=== PATIENT | female | born 1995 | race African-American/Black ===

== ENCOUNTER 2016-10-15 19:46 | Emergency (ER) | payer SELFPAY ==
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
[2016-10-15] MEDS ORDERED: KETOROLAC TROMETHAMINE 60 MG/2 ML SDV IM ONE (20:58)
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
[2016-10-15 21:07] LABS: ABSOLUTE EOSINOPHILS # (AUTO) 0.1 10^3/uL (0.0-0.6); ABSOLUTE LYMPHOCYTES (AUTO) 2.4 10^3/uL (0.5-4.7); ABSOLUTE MONOCYTES (AUTO) 0.6 10^3/uL (0.1-1.4); BASOPHILS % (AUTO) 0.5 % (0-2); EOSINOPHILS % (AUTO) 1.2 % (0-6); HEMATOCRIT 41.5 % (36.0-47.0); HEMOGLOBIN 14.1 g/dL (12.0-15.5); HGB HCT DIFFERENCE 0.8; LYMPHOCYTES % (AUTO) 29.5 % (13-45); MEAN CORPUSCULAR HEMOGLOBIN 29.6 pg (27.0-33.4); MEAN CORPUSCULAR HGB CONC 34.1 g/dL (32.0-36.0); MEAN CORPUSCULAR VOLUME 87 fl (80-97); MONOCYTES % (AUTO) 6.8 % (3-13); RED BLOOD COUNT 4.78 10^6/uL (3.72-5.28); RED CELL DISTRIBUTION WIDTH 13.6 % (11.5-14.0); WHITE BLOOD COUNT 8.1 10^3/uL (4.0-10.5)
[2016-10-15 21:17] LABS: ALANINE AMINOTRANSFERASE 23 U/L (9-52); ALBUMIN 4.8 g/dL (3.5-5.0); ALKALINE PHOSPHATASE 88 U/L (38-126); ANION GAP 11 (5-19); ASPARTATE AMINO TRANSFERASE 21 U/L (14-36); BILIRUBIN,DIRECT 0.4 mg/dL (0.0-0.4); BILIRUBIN,TOTAL 0.5 mg/dL (0.2-1.3); BLOOD UREA NITROGEN 12 mg/dL (7-20); CALCIUM 10.3 mg/dL (8.4-10.2); CARBON DIOXIDE 28 mmol/L (22-30); CHLORIDE 104 mmol/L (98-107); CREATININE RESULT 0.91 mg/dL (0.52-1.25); GLUCOSE 114 mg/dL (75-110); LIPASE 49.2 U/L (23-300); POTASSIUM 4.5 mmol/L (3.6-5.0); SODIUM 142.9 mmol/L (137-145); TOTAL PROTEIN 8.4 g/dL (6.3-8.2)
[2016-10-15 21:24] LABS: APPEARANCE,URINE TURBID; BILIRUBIN,URINE NEGATIVE (NEGATIVE); CALCIUM OXALATE CRYSTALS,URINE FEW /HPF; GLUCOSE, URINE NEGATIVE (NEGATIVE); KETONES,URINE 20 mg/dL (NEGATIVE); LEUKOCYTE ESTERASE,URINE LARGE (NEGATIVE); NITRITE,URINE NEGATIVE (NEGATIVE); PROTEIN,URINE 100 mg/dL (NEGATIVE); URINE SPECIFIC GRAVITY 1.025
[2016-10-15 22:31] VITALS: BP 110/78
== END 2016-10-15 22:30 | disposition home or self-care (01) ==
LOC: ER 19:46
DX: N93.9 Abnormal uterine and vaginal bleeding, unspecified (principal); R10.31 Right lower quadrant pain; R10.32 Left lower quadrant pain; Y04.2XXA Assault by strike against or bumped into by another person, initial encounter; R42 Dizziness and giddiness; R00.0 Tachycardia, unspecified; F17.200 Nicotine dependence, unspecified, uncomplicated; Z97.5 Presence of (intrauterine) contraceptive device; Z88.0 Allergy status to penicillin; Z88.5 Allergy status to narcotic agent; Z91.018 Allergy to other foods; Z87.442 Personal history of urinary calculi
CPT/HCPCS: 99284; 96372; 36415; 83690; 84703; 85025; 80053; 81001; J1885

== ENCOUNTER 2016-10-27 16:06 | Emergency (ER) | payer SELFPAY ==
[2016-10-27] MEDS ORDERED: NORMAL SALINE 1000 ML 1,000 ML IV ONE ×2 (16:26→18:20)
[2016-10-27] MEDS ORDERED: ACETAMINOPHEN 325 MG TABLET PO ONE (16:26)
[2016-10-27] MEDS ORDERED: CEFTRIAXONE 1 GM/D5W RTU 1 GM/50 ML RTUPB IV ONE (16:26)
[2016-10-27] MEDS ORDERED: LIDOCAINE 2% VISCOUS SOLN 20 ML UDCUP PO ONE (16:26)
[2016-10-27] MEDS ORDERED: METOCLOPRAMIDE HCL ORAL SOLN 10 MG/10 ML UDCUP PO ONE (16:26)
[2016-10-27] MEDS ORDERED: MAG HYDROX/AL HYDROX/SIMETH SUSP 30 ML UDCUP PO ONE (16:26)
--- NOTE | 2016-10-27 16:38 | ER Document Report ---
ED Medical Screen (RME) - General Chief Complaint: Flank Pain Stated Complaint: KIDNEY PAIN,CHEST PAIN,HEADACHE Time Seen by Provider: 10/27/16 16:18 Notes: The patient is a 21-year-old female, past medical history infected kidney stones , presents with worsening right flank pain over the past 2 days with fevers. She is also having epigastric pain and nausea. Patient states her right flank pain is constant and does not appear to be colicky in nature. PE: Uncomfortable. Tachycardia. Febrile. Right CVA tenderness. Epigastric tenderness. I have greeted and performed a rapid initial assessment of this patient. A comprehensive ED assessment and evaluation of the patient, analysis of test results and completion of the medical decision making process will be conducted by additional ED providers. TRAVEL OUTSIDE OF THE [place] IN LAST 30 DAYS: No - Related Data Allergies/Adverse Reactions: Penicillins Allergy (Severe, Verified 10/15/16 19:54) hydrocodone Allergy (Verified 10/15/16 19:54) grape juice Allergy (Mild, Uncoded 07/24/15 13:46) Hives mustard Allergy (Mild, Uncoded 07/24/15 13:46) Hives pickles Allergy (Mild, Uncoded 07/24/15 13:46) Hives Past Medical History - Social History Chew tobacco use (# tins/day): No Frequency of alcohol use: None Drug Abuse: None Neurological Medical History: Reports: Hx Migraine, Hx Seizures Renal/ Medical History: Reports: Hx Kidney Stones. Denies: Hx Peritoneal Dialysis Psychiatric Medical History: Reports: Hx Attention Deficit Hyperactivity Disorder, Hx Bipolar Disorder, Hx Depression Past Surgical History: Reports: Hx Gynecologic Surgery - D&C - Immunizations Immunizations up to date: Yes Hx Diphtheria, Pertussis, Tetanus Vaccination: - 2008 Physical Exam - Vital signs Vitals: Temp Pulse Resp BP Pulse Ox 102.8 F H 112 H 20 117/74 97 10/27/16 16:19 10/27/16 16:19 10/27/16 16:19 10/27/16 16:19 10/27/16 16:19 Course - Vital Signs Vital signs: Temp Pulse Resp BP Pulse Ox 102.8 F H 112 H 20 117/74 97 10/27/16 16:19 10/27/16 16:19 10/27/16 16:19 10/27/16 16:19 10/27/16 16:19
[2016-10-27 16:53] LABS: HEMATOCRIT 41.2 % (36.0-47.0); HEMOGLOBIN 13.9 g/dL (12.0-15.5); HGB HCT DIFFERENCE 0.5; MEAN CORPUSCULAR HEMOGLOBIN 29.3 pg (27.0-33.4); MEAN CORPUSCULAR HGB CONC 33.7 g/dL (32.0-36.0); MEAN CORPUSCULAR VOLUME 87 fl (80-97); RED BLOOD COUNT 4.75 10^6/uL (3.72-5.28); RED CELL DISTRIBUTION WIDTH 13.4 % (11.5-14.0); WHITE BLOOD COUNT 20.2 10^3/uL (4.0-10.5)
--- NOTE | 2016-10-27 16:56 | ER Document Report ---
ED General - General Chief Complaint: Flank Pain Stated Complaint: KIDNEY PAIN,CHEST PAIN,HEADACHE Time Seen by Provider: 10/27/16 16:18 Mode of Arrival: Ambulatory Information source: Patient Notes: 21-year-old female presents with complaints of flank pain. Patient admits to fevers and chills notes initially symptoms started with difficulty with urination. Now admits to left flank pain TRAVEL OUTSIDE OF THE [place] IN LAST 30 DAYS: No - HPI Onset: Other - 3 days Onset/Duration: Persistent, Worse Quality of pain: Achy Severity: Mild Pain Level: 3 Associated symptoms: Body/muscle aches, Chills, Fever Exacerbated by: Denies Relieved by: Denies Similar symptoms previously: Yes Recently seen / treated by doctor: No - Related Data Allergies/Adverse Reactions: Penicillins Allergy (Severe, Verified 10/27/16 18:12) hydrocodone Allergy (Verified 10/27/16 18:12) grape juice Allergy (Mild, Uncoded 10/27/16 18:12) Hives mustard Allergy (Mild, Uncoded 10/27/16 18:12) Hives pickles Allergy (Mild, Uncoded 10/27/16 18:12) Hives Past Medical History - Social History Smoking Status: Never Smoker Cigarette use (# per day): No Chew tobacco use (# tins/day): No Smoking Education Provided: No Frequency of alcohol use: None Drug Abuse: None Family History: DM, Hypertension Patient has suicidal ideation: No Patient has homicidal ideation: No Neurological Medical History: Reports: Hx Migraine, Hx Seizures Renal/ Medical History: Reports: Hx Kidney Stones. Denies: Hx Peritoneal Dialysis Psychiatric Medical History: Reports: Hx Attention Deficit Hyperactivity Disorder, Hx Bipolar Disorder, Hx Depression Past Surgical History: Reports: Hx Gynecologic Surgery - D&C - Immunizations Immunizations up to date: Yes Hx Diphtheria, Pertussis, Tetanus Vaccination: - 2008 Review of Systems - Review of Systems Notes: REVIEW OF SYSTEMS: CONSTITUTIONAL : Admits fevers chills EENT: Denies eye, ear, throat, or mouth pain or symptoms. Denies nasal or sinus congestion or discharge. Denies throat, tongue, or mouth swelling or difficulty swallowing. CARDIOVASCULAR: Denies chest pain. Denies palpitations or racing or irregular heart beat. Denies ankle edema. RESPIRATORY: Denies cough, cold, or chest congestion. Denies shortness of breath, difficulty breathing, or wheezing. GASTROINTESTINAL: Denies abdominal pain or distention. Denies nausea, vomiting , or diarrhea. Denies blood in vomitus, stools, or per rectum. Denies black, tarry stools. Denies constipation. GENITOURINARY: Denies difficulty urinating, painful urination, burning, frequency, blood in urine, or discharge. FEMALE GENITOURINARY: Denies vaginal bleeding, heavy or abnormal periods, irregular periods. Denies vaginal discharge or odor. MUSCULOSKELETAL: Admits body aches SKIN: Denies rash, lesions or sores. HEMATOLOGIC : Denies easy bruising or bleeding. LYMPHATIC: Denies swollen, enlarged glands. NEUROLOGICAL: Denies confusion or altered mental status. Denies passing out or loss of consciousness. Denies dizziness or lightheadedness. Denies headache. Denies weakness or paralysis or loss of use of either side. Denies problems with gait or speech. Denies sensory loss, numbness, or tingling. Denies seizures. PSYCHIATRIC: Denies anxiety or stress. Denies depression, suicidal ideation, or homicidal ideation. ALL OTHER SYSTEMS REVIEWED AND NEGATIVE. PHYSICAL EXAMINATION: GENERAL: Well-appearing, well-nourished and in no acute distress. febrile HEAD: Atraumatic, normocephalic. EYES: Pupils equal round and reactive to light, extraocular movements intact, conjunctiva are normal. ENT: Nares patent, oropharynx clear without exudates. Moist mucous membranes. NECK: Normal range of motion, supple without lymphadenopathy LUNGS: Breath sounds clear to auscultation bilaterally and equal. No wheezes rales or rhonchi. HEART: Regular rate and rhythm without murmurs ABDOMEN: Soft, nontender, nondistended abdomen. No guarding, no rebound. No masses appreciated. left cva tenderness Female : deferred Musculoskeletal: Normal range of motion, no pitting or edema. No cyanosis. NEUROLOGICAL: Cranial nerves grossly intact. Normal speech, normal gait. Normal sensory, motor exams PSYCH: Normal mood, normal affect. SKIN: Warm, Dry, normal turgor, no rashes or lesions noted. Dictation was performed using [employer] voice recognition software Physical Exam - Vital signs Vitals: Temp Pulse Resp BP Pulse Ox 102.8 F H 112 H 20 117/74 97 10/27/16 16:19 10/27/16 16:19 10/27/16 16:19 10/27/16 16:19 10/27/16 16:19 Course - Re-evaluation Re-evalutation: 10/27/16 17:14 Patient has probable pylo, labs pending 10/27/16 18:45 Patient is sleeping comfortably, no longer tachycardic 10/27/16 19:43 Patient reevaluated still stable will discharge home with antibiotics After performing a Medical Screening Examination, I estimate there is LOW risk for ACUTE APPENDICITIS, BOWEL OBSTRUCTION, ACUTE CHOLECYSTITIS, PERFORATED DIVERTICULITIS, INCARCERATED HERNIA, PANCREATITIS, PELVIC INFLAMMATORY DISEASE, PERFORATED ULCER, ECTOPIC , or TUBO-OVARIAN ABSCESS, thus I consider the discharge disposition reasonable. Also, there is no evidence or peritonitis , sepsis, or toxicity. I have reevaluated this patient multiple times and no significant life threatening changes are noted. The patient and I have discussed the diagnosis and risks, and we agree with discharging home with close follow-up with the understanding that symptoms and presentations can change. We also discussed returning to the Emergency Department immediately if new or worsening symptoms occur. We have discussed the symptoms which are most concerning (e.g., bloody stool, fever, changing or worsening pain, vomiting) that necessitate immediate return. - Vital Signs Vital signs: Temp Pulse Resp BP Pulse Ox 98.5 F 106 H 17 101/69 99 10/27/16 19:33 10/27/16 18:29 10/27/16 19:30 10/27/16 19:30 10/27/16 19:30 - Laboratory Result Diagrams: 10/27/16 16:30 10/27/16 16:30 Laboratory results interpreted by me: 10/27/16 10/27/16 10/27/16 16:30 16:30 16:30 WBC 20.2 H Seg Neuts % (Manual) 81 H Lymphocytes % (Manual) 9 L Abs Neuts (Manual) 16.4 H Abs Monocytes (Manual) 1.8 H Calcium 10.3 H Urine Protein 100 H Urine Ketones TRACE H Urine Blood MODERATE H Urine Nitrite POSITIVE H Ur Leukocyte Esterase LARGE H Discharge - Discharge Clinical Impression: Pyelonephritis UTI (urinary tract infection) Qualifiers: Urinary tract infection type: acute cystitis Hematuria presence: with hematuria Qualified Code(s): N30.01 - Acute cystitis with hematuria Sepsis Qualifiers: Sepsis type: sepsis due to unspecified organism Qualified Code(s): A41.9 - Sepsis, unspecified organism Condition: Stable Disposition: HOME, SELF-CARE Instructions: Pyelonephritis ([facility]) Additional Instructions: Follow up with your physician tomorrow for further care or return to the ED IMMEDIATELY if symptoms worsen or new concerns occur. If you cannot afford to follow up with your primary care physician a list of low cost clinics have been provided at the end of your discharge papers as well. Prescriptions: Ciprofloxacin HCl [Cipro 500 mg Tablet] 500 mg PO BID #20 tablet Oxycodone HCl/Acetaminophen [Percocet 5-325 mg Tablet] 1 - 2 tab PO Q4H PRN #15 tablet PRN Reason: Promethazine HCl [Phenergan 25 mg Tablet] 1 - 2 tab PO Q6H PRN #15 tablet PRN Reason:
[2016-10-27 17:09] LABS: APPEARANCE,URINE TURBID; BILIRUBIN,URINE NEGATIVE (NEGATIVE); GLUCOSE, URINE NEGATIVE (NEGATIVE); KETONES,URINE TRACE mg/dL (NEGATIVE); LEUKOCYTE ESTERASE,URINE LARGE (NEGATIVE); NITRITE,URINE POSITIVE (NEGATIVE); PROTEIN,URINE 100 mg/dL (NEGATIVE); UROBILINOGEN,URINE NEGATIVE mg/dL (<2.0)
[2016-10-27 17:10] LABS: ALANINE AMINOTRANSFERASE 22 U/L (9-52); ALBUMIN 4.8 g/dL (3.5-5.0); ALKALINE PHOSPHATASE 94 U/L (38-126); ANION GAP 10 (5-19); ASPARTATE AMINO TRANSFERASE 15 U/L (14-36); BILIRUBIN,DIRECT 0.3 mg/dL (0.0-0.4); BILIRUBIN,TOTAL 0.8 mg/dL (0.2-1.3); BLOOD UREA NITROGEN 8 mg/dL (7-20); CALCIUM 10.3 mg/dL (8.4-10.2); CARBON DIOXIDE 27 mmol/L (22-30); CHLORIDE 100 mmol/L (98-107); CREATININE RESULT 1.01 mg/dL (0.52-1.25); GLUCOSE 106 mg/dL (75-110); LIPASE 33.2 U/L (23-300); POTASSIUM 4.2 mmol/L (3.6-5.0); SODIUM 137.2 mmol/L (137-145); TOTAL PROTEIN 8.2 g/dL (6.3-8.2)
[2016-10-27] MEDS ORDERED: KETOROLAC TROMETHAMINE INJ/PF 30 MG/1 ML SDV IV ONE (17:10)
[2016-10-27 17:16] LABS: BASOPHILS % (MANUAL) 0 % (0-2); EOSINOPHILS % (MANUAL) 0 % (0-6); LYMPHOCYTES % (MANUAL) 9 % (13-45); TOTAL CELLS COUNTED 100
[2016-10-27 17:18] LABS: RBC MORPHOLOGY COMMENT NORMO-CYTIC/CHROMIC
[2016-10-27 19:34] VITALS: BP 101/69
== END 2016-10-27 19:50 | disposition home or self-care (01) ==
LOC: ER 16:06
DX: N12 Tubulo-interstitial nephritis, not specified as acute or chronic (principal); N30.01 Acute cystitis with hematuria; A41.9 Sepsis, unspecified organism; R07.9 Chest pain, unspecified; R10.9 Unspecified abdominal pain; R51 Headache; M79.1 Myalgia; Z88.0 Allergy status to penicillin; Z88.6 Allergy status to analgesic agent; Z87.442 Personal history of urinary calculi
CPT/HCPCS: 99284; 96361; 96375; 96365; 36415; 87040; 87086; 83690; 85025; 87088; 80053; 81001; 87186; 83605; J3490; J1885; J7030; J0696

== ENCOUNTER 2018-10-06 15:53 | Emergency (ER) | payer SELFPAY ==
[2018-10-06 15:58] VITALS: BP 113/61
[2018-10-06] MEDS ORDERED: ONDANSETRON 4 MG TAB.RAPDIS PO ONE (16:58)
[2018-10-06] MEDS ORDERED: KETOROLAC TROMETHAMINE 60 MG/2 ML SDV IM ONE (16:59)
--- NOTE | 2018-10-06 17:03 | ER Document Report ---
ED Medical Screen (RME) - General Chief Complaint: Flank Pain Stated Complaint: HEADACHE/FLANK PAIN Time Seen by Provider: 10/06/18 16:45 Mode of Arrival: Ambulatory Information source: Patient TRAVEL OUTSIDE OF THE [place] IN LAST 30 DAYS: No - HPI Notes: 10/06/18 16:59 23-year-old female presents to ED for complaints of headache, right flank pain for the last couple of days, has a history of nephrolithiasis with renal stent placement. Patient states she is been increasing oral hydration, has not followed up with the windows laptop technician due to recent incarceration. Patient is eating and drinking without issues. Does not have a primary care provider that she follows with your windows laptop technician. Worse with time, nothing makes better. Denies fevers, chills, chest pain,palpitations, shortness of breath, dyspnea, nausea, vomiting, diarrhea, abdominal pain, hematuria,blurred vision, double vision, loss of vision, speech changes, LH, dizziness, syncope, wheezing, ST, URI, neck pain, weakness, bowel or bladder dysfunction, saddle anesthesia, numbness or tingling in bilateral upper or lower extremities equally, muscle paralysis, weakness in bilateral upper or lower extremities equally or rash. P ROS: Other than noted above, the 12 point review of systems was reviewed with the patient and were negative, all pertinent findings are included in the HPI. PHYSICAL EXAMINATION: Vital signs reviewed. GENERAL: Well-appearing, well-nourished and in no mild distress. HEAD: Atraumatic, normocephalic. NECK: Normal range of motion CV: Heart regular rate and rhythm LUNGS: No respiratory distress ABD: right cva tenderness on palpation Musculoskeletal: Normal range of motion NEUROLOGICAL: Normal speech PSYCH: Normal mood, normal affect. MDM: Patient seen and examined for rapid initial assessment. Vital signs reviewed. A comprehensive ED assessment and evaluation of the patient, analysis of test results and completion of the medical decision making process will be conducted by additional ED providers. *Note is created using voice recognition software and may contain spelling, syntax or grammatical errors. - Related Data Allergies/Adverse Reactions: Penicillins Allergy (Severe, Verified 10/06/18 15:54) hydrocodone Allergy (Verified 10/06/18 15:54) grape juice Allergy (Mild, Uncoded 10/06/18 15:54) Hives mustard Allergy (Mild, Uncoded 10/06/18 15:54) Hives pickles Allergy (Mild, Uncoded 10/06/18 15:54) Hives Past Medical History Neurological Medical History: Reports: Hx Migraine, Hx Seizures Renal/ Medical History: Reports: Hx Kidney Stones. Denies: Hx Peritoneal Dialysis Psychiatric Medical History: Reports: Hx Attention Deficit Hyperactivity Disorder, Hx Bipolar Disorder, Hx Depression Past Surgical History: Reports: Hx Gynecologic Surgery - D&C - Immunizations Immunizations up to date: Yes Hx Diphtheria, Pertussis, Tetanus Vaccination: - 2008 Physical Exam - Vital signs Vitals: Temp Pulse Resp BP Pulse Ox 97.6 F 71 20 113/61 99 10/06/18 15:57 10/06/18 15:57 10/06/18 15:57 10/06/18 15:57 10/06/18 15:57 Course - Vital Signs Vital signs: Temp Pulse Resp BP Pulse Ox 97.6 F 71 20 113/61 99 10/06/18 15:57 10/06/18 15:57 10/06/18 15:57 10/06/18 15:57 10/06/18 15:57
[2018-10-06 18:27] LABS: ABSOLUTE EOSINOPHILS # (AUTO) 0.1 10^3/uL (0.0-0.6); ABSOLUTE LYMPHOCYTES (AUTO) 2.2 10^3/uL (0.5-4.7); ABSOLUTE MONOCYTES (AUTO) 0.5 10^3/uL (0.1-1.4); ABSOLUTE NEUT (AUTO) 4.8 10^3/uL (1.7-8.2); BASOPHILS % (AUTO) 0.5 % (0-2); EOSINOPHILS % (AUTO) 1.1 % (0-6); HEMATOCRIT 40.1 % (36.0-47.0); HEMOGLOBIN 13.3 g/dL (12.0-15.5); MEAN CORPUSCULAR HEMOGLOBIN 28.2 pg (27.0-33.4); MEAN CORPUSCULAR HGB CONC 33.2 g/dL (32.0-36.0); MEAN CORPUSCULAR VOLUME 85 fl (80-97); MONOCYTES % (AUTO) 6.6 % (3-13); PLATELET COUNT 318 10^3/uL (150-450); RED BLOOD COUNT 4.71 10^6/uL (3.72-5.28); RED CELL DISTRIBUTION WIDTH 14.5 % (11.5-14.0); SEGMENTED NEUTROPHILS % (AUTO) 62.8 % (42-78); TOTAL CELLS COUNTED % (AUTO) 100 %; WHITE BLOOD COUNT 7.6 10^3/uL (4.0-10.5)
[2018-10-06 18:42] LABS: ALANINE AMINOTRANSFERASE 24 U/L (9-52); ALBUMIN 4.6 g/dL (3.5-5.0); ALKALINE PHOSPHATASE 81 U/L (38-126); ANION GAP 5 (5-19); ASPARTATE AMINO TRANSFERASE 22 U/L (14-36); BILIRUBIN,DIRECT 0.1 mg/dL (0.0-0.4); BILIRUBIN,TOTAL 0.2 mg/dL (0.2-1.3); BLOOD UREA NITROGEN 11 mg/dL (7-20); CALCIUM 10.3 mg/dL (8.4-10.2); CARBON DIOXIDE 28 mmol/L (22-30); CHLORIDE 107 mmol/L (98-107); POTASSIUM 4.4 mmol/L (3.6-5.0); TOTAL PROTEIN 7.6 g/dL (6.3-8.2)
--- NOTE | 2018-10-06 18:44 | RADIOLOGY REPORT (SQ) ---
EXAM DESCRIPTION: [employer] COMPLETED DATE/TIME: 10/06/2018 6:16 pm REASON FOR STUDY: R flank pain COMPARISON: None. TECHNIQUE: Dynamic and static grayscale images acquired of the kidneys and bladder and recorded on P ACS. Additional selected color Doppler and spectral images recorded. LIMITATIONS: None. FINDINGS: RIGHT KIDNEY: Normal size. Normal echogenicity. No solid or suspicious masses. No hydronep hrosis. No calcifications. LEFT KIDNEY: Normal size. Normal echogenicity. No solid or suspicious masses. No hydronephrosis. No calcifications. BLADDER: No masses. OTHER FINDINGS: No other significant finding. IMPRESSION: NORMAL RENAL AND BLADDER ULTRASOUND. TECHNICAL DOCUMENTATION: JOB ID: [id number] [id number] 2010 [employer]- All Rights Reserved Reading location - IP/workstation name: [email or web address]
[2018-10-06 18:49] LABS: GLUCOSE 64 mg/dL (75-110)
[2018-10-06] MEDS ORDERED: KETOROLAC TROMETHAMINE 60 MG/2 ML SDV ONE (19:15)
[2018-10-06] MEDS ORDERED: ONDANSETRON 4 MG TAB.RAPDIS ONE (19:16)
[2018-10-06 19:33] LABS: AMORPHOUS SEDIMENT,URINE 1+ /HPF; APPEARANCE,URINE TURBID; BILIRUBIN,URINE NEGATIVE (NEGATIVE); COLOR,URINE YELLOW; GLUCOSE, URINE NEGATIVE (NEGATIVE); KETONES,URINE NEGATIVE (NEGATIVE); LEUKOCYTE ESTERASE,URINE MODERATE (NEGATIVE); NITRITE,URINE POSITIVE (NEGATIVE); PROTEIN,URINE NEGATIVE (NEGATIVE); URINE SPECIFIC GRAVITY 1.017; UROBILINOGEN,URINE NEGATIVE mg/dL (<2.0)
[2018-10-06] MEDS ORDERED: CIPROFLOXACIN 400 MG/D5W RTU 400 MG/200 ML RTUPB IV ONE (19:51)
[2018-10-06] MEDS ORDERED: NORMAL SALINE 1000 ML 1,000 ML IV ONE (19:52)
[2018-10-06 20:32] LABS: URINE AMPHETAMINES SCREEN NEGATIVE; URINE BARBITURATES SCREEN NEGATIVE; URINE BENZODIAZEPINES SCREEN NEGATIVE; URINE COCAINE SCREEN NEGATIVE; URINE METHADONE SCREEN NEGATIVE; URINE PHENCYCLIDINE SCREEN NEGATIVE
[2018-10-06 20:34] LABS: URINE MARIJUANA (THC) SCREEN UNCONFIRMED POSITIVE
[2018-10-06] MEDS ORDERED: PHENAZOPYRIDINE HCL 100 MG TABLET PO ONE (21:19)
--- NOTE | 2018-10-06 21:19 | ER Document Report ---
ED GI/ - General Chief Complaint: Flank Pain Stated Complaint: HEADACHE/FLANK PAIN Time Seen by Provider: 10/06/18 16:45 Primary Care Provider: [facility] [Provider Group] - Follow up in 3-5 days Mode of Arrival: Ambulatory Notes: 23-year-old female patient emerged department chief complaint right flank pain and dysuria. Patient is concerned because she has had multiple kidney infections. Also had a history of stones. Wanted to get this "taken care of soon". No fever. Generally does not feel well. Having some body aches and some right flank pain. TRAVEL OUTSIDE OF THE [place] IN LAST 30 DAYS: No - HPI Patient complains to provider of: Dysuria, Flank pain Onset: Yesterday Timing/Duration: Gradual, Constant Quality of pain: Achy Severity at maximum: Moderate Severity in ED: Moderate Pain Level: 3 Location: Right flank Vaginal bleeding (Compared to normal period): None - Related Data Allergies/Adverse Reactions: Penicillins Allergy (Severe, Verified 10/06/18 15:54) hydrocodone Allergy (Verified 10/06/18 15:54) grape juice Allergy (Mild, Uncoded 10/06/18 15:54) Hives mustard Allergy (Mild, Uncoded 10/06/18 15:54) Hives pickles Allergy (Mild, Uncoded 10/06/18 15:54) Hives Past Medical History - General Information source: Patient - Social History Smoking Status: Smoker,Current Status Unk Frequency of alcohol use: None Drug Abuse: None Lives with: Family Family History: DM, Hypertension Patient has suicidal ideation: No Patient has homicidal ideation: No Neurological Medical History: Reports: Hx Migraine, Hx Seizures Renal/ Medical History: Reports: Hx Kidney Stones. Denies: Hx Peritoneal Dialysis Psychiatric Medical History: Reports: Hx Attention Deficit Hyperactivity Disorder, Hx Bipolar Disorder, Hx Depression Past Surgical History: Reports: Hx Gynecologic Surgery - D&C - Immunizations Immunizations up to date: Yes Hx Diphtheria, Pertussis, Tetanus Vaccination: - 2008 Review of Systems - Review of Systems Notes: Constitutional: denies: Chills, Diaphoresis, Fever, Malaise, Weakness EENT: denies: Eye discharge, Blurred vision, Tearing, Double vision, Nose congestion, Nose discharge, Throat swelling, Mouth pain Cardiovascular: denies: Palpitations, Heart racing, Orthopnea, Dyspnea, Chest pain Respiratory: denies: Cough, Hurts to breathe, Wheezing, Shortness of breath Gastrointestinal: denies: Abdominal pain, Diarrhea, Nausea, Vomiting, Black stools, bright red blood in stool Genitourinary: denies: Burning, +Dysuria, -Discharge, +Frequency, +Flank pain, +Hematuria Musculoskeletal: denies: Joint pain, Joint swelling, Muscle pain, Muscle stiffness, back pain Hematologic/Lymphatic: denies: Anemia, Easy bleeding, Easy bruising, Blood clots Neurological/Psychological: denies: Confusion, Dementia, Depression, Loss of co nsciousness Skin: No lesions, no masses, no skin breakdown, no abscesses Physical Exam - Vital signs Vitals: Temp Pulse Resp BP Pulse Ox 97.6 F 71 20 113/61 99 10/06/18 15:57 10/06/18 15:57 10/06/18 15:57 10/06/18 15:57 10/06/18 15:57 Interpretation: Normal - General General appearance: Appears well, Alert - HEENT Head: Normocephalic, Atraumatic Eyes: Normal Pupils: PERRL - Respiratory Respiratory status: No respiratory distress Chest status: Nontender Breath sounds: Normal Chest palpation: Normal - Cardiovascular Rhythm: Regular Heart sounds: Normal auscultation Murmur: No - Abdominal Inspection: Normal Distension: No distension Bowel sounds: Normal Tenderness: Nontender Organomegaly: No organomegaly - Back Back: Normal, Nontender - Extremities General upper extremity: Normal inspection, Nontender, Normal color, Normal ROM, Normal temperature General lower extremity: Normal inspection, Nontender, Normal color, Normal ROM, Normal temperature, Normal weight bearing. No: [place]'s sign - Neurological Neuro grossly intact: Yes Cognition: Normal Orientation: AAOx4 Chris Coma Scale Eye Opening: Spontaneous Eugene Coma Scale Verbal: Oriented Eugene Coma Scale Motor: Obeys Commands Eugene Coma Scale Total: 15 Speech: Normal Motor strength normal: LUE, RUE, LLE, RLE Sensory: Normal - Psychological Associated symptoms: Normal affect, Normal mood - Skin Skin Temperature: Warm Skin Moisture: Dry Skin Color: Normal Course - Re-evaluation Re-evalutation: 10/06/18 21:16 Laboratory 10/06/18 10/06/18 10/06/18 18:12 18:12 19:20 WBC 7.6 RBC 4.71 Hgb 13.3 Hct 40.1 MCV 85 MCH 28.2 MCHC 33.2 RDW 14.5 H Plt Count 318 Seg Neutrophils % 62.8 Lymphocytes % 29.0 Monocytes % 6.6 Eosinophils % 1.1 Basophils % 0.5 Absolute Neutrophils 4.8 Absolute Lymphocytes 2.2 Absolute Monocytes 0.5 Absolute Eosinophils 0.1 Absolute Basophils 0.0 Sodium 140.2 Potassium 4.4 Chloride 107 Carbon Dioxide 28 Anion Gap 5 BUN 11 Creatinine 0.68 Est GFR ( Amer) > 60 Est GFR (Non-Af Amer) > 60 Glucose 64 L Calcium 10.3 H Total Bilirubin 0.2 Direct Bilirubin 0.1 Neonat Total Bilirubin Not Reportable Neonat Direct Bilirubin Not Reportable Neonat Indirect Bili Not Reportable AST 22 ALT 24 Alkaline Phosphatase 81 Total Protein 7.6 Albumin 4.6 Lipase 90.2 Urine Color YELLOW Urine Appearance TURBID Urine pH 7.0 Ur Specific Daphne 1.017 Urine Protein NEGATIVE Urine Glucose (UA) NEGATIVE Urine Ketones NEGATIVE Urine Blood NEGATIVE Urine Nitrite POSITIVE H Urine Bilirubin NEGATIVE Urine Urobilinogen NEGATIVE Ur Leukocyte Esterase MODERATE H Urine WBC (Auto) 11 Urine RBC (Auto) 4 Urine Bacteria (Auto) TRACE Squamous Epi Cells Auto 28 Amorphous Sediment Auto 1+ Urine Mucus (Auto) RARE Urine Ascorbic Acid NEGATIVE Urine HCG, Qual NEGATIVE Urine Opiates Screen Urine Methadone Screen Ur Barbiturates Screen Ur Phencyclidine Scrn Ur Amphetamines Screen U Benzodiazepines Scrn Urine Cocaine Screen U Marijuana (THC) Screen 10/06/18 19:20 WBC RBC Hgb Hct MCV MCH MCHC RDW Plt Count Seg Neutrophils % Lymphocytes % Monocytes % Eosinophils % Basophils % Absolute Neutrophils Absolute Lymphocytes Absolute Monocytes Absolute Eosinophils Absolute Basophils Sodium Potassium Chloride Carbon Dioxide Anion Gap BUN Creatinine Est GFR ( Amer) Est GFR (Non-Af Amer) Glucose Calcium Total Bilirubin Direct Bilirubin Neonat Total Bilirubin Neonat Direct Bilirubin Neonat Indirect Bili AST ALT Alkaline Phosphatase Total Protein Albumin Lipase Urine Color Urine Appearance Urine pH Ur Specific Daphne Urine Protein Urine Glucose (UA) Urine Ketones Urine Blood Urine Nitrite Urine Bilirubin Urine Urobilinogen Ur Leukocyte Esterase Urine WBC (Auto) Urine RBC (Auto) Urine Bacteria (Auto) Squamous Epi Cells Auto Amorphous Sediment Auto Urine Mucus (Auto) Urine Ascorbic Acid Urine HCG, Qual Urine Opiates Screen NEGATIVE Urine Methadone Screen NEGATIVE Ur Barbiturates Screen NEGATIVE Ur Phencyclidine Scrn NEGATIVE Ur Amphetamines Screen NEGATIVE U Benzodiazepines Scrn NEGATIVE Urine Cocaine Screen NEGATIVE U Marijuana (THC) Screen UNCONFIRMED POSITIVE Renal Ultrasound 10/06/18 16:54 IMPRESSION: NORMAL RENAL AND BLADDER ULTRASOUND. Patient has UTI with nitrite positive. Review of cultures performed and shows that she is sensitive to fluoroquinolones and tolerated it well in the past. Given her history I have going to give her some IV antibiotics. Patient is comfortable with this plan. Toradol was given as well. Comfortable discharging after antibiotics are complete. Has urology follow-up. - Vital Signs Vital signs: Temp Pulse Resp BP Pulse Ox 97.6 F 71 20 113/61 99 10/06/18 15:57 10/06/18 15:57 10/06/18 15:57 10/06/18 15:57 10/06/18 15:57 - Laboratory Result Diagrams: 10/06/18 18:12 10/06/18 18:12 Laboratory results interpreted by me: 10/06/18 10/06/18 10/06/18 18:12 18:12 19:20 RDW 14.5 H Glucose 64 L Calcium 10.3 H Urine Nitrite POSITIVE H Ur Leukocyte Esterase MODERATE H Discharge - Discharge Clinical Impression: Urinary tract infection Qualifiers: Urinary tract infection type: site unspecified Hematuria presence: without hematuria Qualified Code(s): N39.0 - Urinary tract infection, site not specified Condition: Good Disposition: HOME, SELF-CARE Instructions: Ciprofloxacin ([facility]), Urinary Anesthetic Agent ([facility]), Urinary Tract Infection ([facility]) Additional Instructions: If you develop worsening pain, fever, unable to tolerate your medications or for any other concerns please return immediately for repeat evaluation. Please make an appointment to follow-up with a urologist. Follow-up information for the urology group that sees patients here in [place] and who we are affiliated with the hospital in [place] has been provided. Prescriptions: Ciprofloxacin HCl [Cipro 500 mg Tablet] 500 mg PO BID 7 Days #14 tablet Phenazopyridine HCl [Pyridium 100 Mg Tablet] 100 mg PO TID 3 Days #9 tablet Referrals: [facility] [Provider Group] - Follow up in 3-5 days
== END 2018-10-06 21:36 | disposition home or self-care (01) ==
LOC: ER 15:53
DX: N39.0 Urinary tract infection, site not specified (principal); R30.0 Dysuria; R10.9 Unspecified abdominal pain; Z87.442 Personal history of urinary calculi; Z88.0 Allergy status to penicillin; Z88.5 Allergy status to narcotic agent; Z91.018 Allergy to other foods
CPT/HCPCS: 99284; 96361; 96374; 96375; 36415; 87086; 83690; 85025; 81025; 80053; 81001; 80307; 76775; J1885; S0119; J3490; J7030; J0744

== ENCOUNTER 2019-01-21 09:26 | Inpatient (IN) | payer SELFPAY ==
[2019-01-21] MEDS ORDERED: METOCLOPRAMIDE HCL INJ/PF 10 MG/2 ML SDV IV ONE ×2 (11:38→16:01)
[2019-01-21] MEDS ORDERED: NORMAL SALINE 1000 ML 1,000 ML IV ONE ×3 (11:38→18:54)
[2019-01-21] MEDS ORDERED: MORPHINE SULFATE 10 MG/ML INJ IV ONE ×2 (11:39→16:58)
--- NOTE | 2019-01-21 11:40 | ER Document Report ---
ED Medical Screen (RME) - General Chief Complaint: Flank Pain Stated Complaint: FLANK PAIN Time Seen by Provider: 01/21/19 11:32 Notes: Patient is a 23-year-old female who presents to emergency department with a chief complaint of right flank pain. Patient reports over the past 4 days she has had lower abdominal pain and right flank pain. Patient reports she does have a history of kidney stones. Patient denies urinary symptoms. Patient reports significant nausea and vomiting and inability to keep anything down by mouth over the past 4 days. Patient reports her last menstrual cycle was December 19 but that she could be . Patient denies vaginal bleeding or discharge. Patient reports subjective fevers. EMS reported a lactate of 2.8. TRAVEL OUTSIDE OF THE U[place] IN LAST 30 DAYS: No - Related Data Allergies/Adverse Reactions: Penicillins Allergy (Severe, Verified 10/06/18 15:54) hydrocodone Allergy (Verified 10/06/18 15:54) grape juice Allergy (Mild, Uncoded 10/06/18 15:54) Hives mustard Allergy (Mild, Uncoded 10/06/18 15:54) Hives pickles Allergy (Mild, Uncoded 10/06/18 15:54) Hives Past Medical History - Social History Frequency of alcohol use: None Drug Abuse: Marijuana Neurological Medical History: Reports: Hx Migraine, Hx Seizures Renal/ Medical History: Reports: Hx Kidney Stones. Denies: Hx Peritoneal Dialysis Psychiatric Medical History: Reports: Hx Attention Deficit Hyperactivity Disorder, Hx Bipolar Disorder, Hx Depression Past Surgical History: Reports: Hx Gynecologic Surgery - D&C - Immunizations Immunizations up to date: Yes Hx Diphtheria, Pertussis, Tetanus Vaccination: - 2008 Physical Exam - Vital signs Vitals: Temp Pulse Resp BP Pulse Ox 97.8 F 82 18 125/64 99 01/21/19 10:28 01/21/19 10:28 01/21/19 10:28 01/21/19 10:28 01/21/19 10:28 Course - Re-evaluation Re-evalutation: 01/21/19 11:39 I have greeted and performed a rapid initial assessment of this patient. A comprehensive ED assessment and evaluation of the patient, analysis of test results and completion of the medical decision making process will be conducted by additional ED providers. - Vital Signs Vital signs: Temp Pulse Resp BP Pulse Ox 97.8 F 82 18 125/64 99 01/21/19 10:28 01/21/19 10:28 01/21/19 10:28 01/21/19 10:28 01/21/19 10:28
[2019-01-21 12:21] LABS: HEMATOCRIT 40.8 % (36.0-47.0); HEMOGLOBIN 13.7 g/dL (12.0-15.5); MEAN CORPUSCULAR HEMOGLOBIN 28.4 pg (27.0-33.4); MEAN CORPUSCULAR HGB CONC 33.6 g/dL (32.0-36.0); MEAN CORPUSCULAR VOLUME 85 fl (80-97); PLATELET COUNT 314 10^3/uL (150-450); RED BLOOD COUNT 4.82 10^6/uL (3.72-5.28); RED CELL DISTRIBUTION WIDTH 13.9 % (11.5-14.0); WHITE BLOOD COUNT 24.6 10^3/uL (4.0-10.5)
[2019-01-21] MEDS ORDERED: KETOROLAC TROMETHAMINE INJ/PF 30 MG/1 ML SDV IV ONE (12:31)
--- NOTE | 2019-01-21 12:38 | ER Document Report ---
ED General - General Chief Complaint: Flank Pain Stated Complaint: FLANK PAIN Time Seen by Provider: 01/21/19 11:32 TRAVEL OUTSIDE OF THE U.[place]. IN LAST 30 DAYS: No - HPI Notes: 23-year-old female with prior history of renal stones requiring stent placement and lithotripsy several years ago now presents today with recurrent right flank pain of 3 days duration which is described as intermittent and sharp about 8/10 intensity. She has had associated nausea multiple episodes of vomiting today. Feels her pain is getting worse. She denies fever, chills, or dysuria. Patient reports normal menses 2 weeks ago. She states that she is otherwise healthy. - Related Data Allergies/Adverse Reactions: Penicillins Allergy (Severe, Verified 10/06/18 15:54) hydrocodone Allergy (Verified 10/06/18 15:54) grape juice Allergy (Mild, Uncoded 10/06/18 15:54) Hives mustard Allergy (Mild, Uncoded 10/06/18 15:54) Hives pickles Allergy (Mild, Uncoded 10/06/18 15:54) Hives Past Medical History - Social History Smoking Status: Current Every Day Smoker Frequency of alcohol use: None Drug Abuse: Marijuana Family History: DM, Hypertension Patient has suicidal ideation: No Patient has homicidal ideation: No Neurological Medical History: Reports: Hx Migraine, Hx Seizures Renal/ Medical History: Reports: Hx Kidney Stones. Denies: Hx Peritoneal Dialysis Psychiatric Medical History: Reports: Hx Attention Deficit Hyperactivity Disorder, Hx Bipolar Disorder, Hx Depression Past Surgical History: Reports: Hx Gynecologic Surgery - D&C - Immunizations Immunizations up to date: Yes Hx Diphtheria, Pertussis, Tetanus Vaccination: - 2008 Review of Systems - Review of Systems Notes: Constitutional: Negative for fever. HENT: Negative for sore throat. Eyes: Negative for visual changes. Cardiovascular: Negative for chest pain. Respiratory: Negative for shortness of breath. Gastrointestinal: As per HPI Musculoskeletal: Negative for back pain. Skin: Negative for rash. Neurological: Negative for headaches, weakness or numbness. 10 point ROS negative except as marked above and in HPI. Physical Exam - Vital signs Vitals: Temp Pulse Resp BP Pulse Ox 97.8 F 82 18 125/64 99 01/21/19 10:28 01/21/19 10:28 01/21/19 10:28 01/21/19 10:28 01/21/19 10:28 Notes: GENERAL: Slender female appearing approximately her stated age who appears mildly uncomfortable. She is somewhat sedated from morphine which was already administered by mid-level provider. SKIN: Good turgor with grade 2 acneform rash noted over the facial area. HEAD: Normocephalic atraumatic. EYES: PERRLA. Conjunctivae and sclerae clear. EARS: CANALS AND TMS CLEAR. NOSE: CLEAR. MOUTH: Moist mucosa. Good dentition. No stridor or edema. No drooling. NECK: Supple. No masses or thyromegaly. No adenopathy. Carotids 2+ without bruits. No JVD. BACK: Symmetrical with right CVA tenderness. CHEST: Respirations unlabored. Breath sounds clear and symmetrical. HEART: Regular rhythm. No murmur gallop or rub. ABDOMEN: Soft with mild tenderness right upper quadrant with deep palpation. No masses, organomegaly or rebound. Bowel sounds normally active. No bruits. GENITALIA: Deferred. EXTREMITIES: No edema. No calf tenderness. Cap refill less than 1.5 seconds. Dorsalis pedis and posterior tibial pulses 3+ and symmetrical. NEUROLOGICAL: GCS 15. Alert and oriented x3. Normal gait. Fluent speech. Cranial nerves II through XII intact. Sensorimotor and cerebellar normal. Normal tone. Course - Vital Signs Vital signs: Temp Pulse Resp BP Pulse Ox 97.9 F 96 18 131/81 H 99 01/21/19 15:21 01/21/19 15:21 01/21/19 17:13 01/21/19 17:13 01/21/19 17:13 01/21/19 12:37 Patient is still not been able to urinate although she is received 1 L of normal saline IV here already. I will give her a second liter and also give her some IV Toradol because she complains of ongoing for over [address] I requested a CT stone study and pending labs include urinalysis, test, urine drug screen CBC and comprehensive metabolic profile. - Laboratory Result Diagrams: 01/21/19 12:00 01/21/19 12:00 Laboratory results interpreted by me: 01/21/19 01/21/19 01/21/19 12:00 12:00 12:00 WBC 24.6 H Seg Neuts % (Manual) 85 H Lymphocytes % (Manual) 9 L Abs Neuts (Manual) 20.9 H Abs Monocytes (Manual) 1.5 H Carbon Dioxide 17 L Anion Gap 24 H BUN 23 H Creatinine 1.44 H Est GFR ( Amer) 54 L Est GFR (MDRD) Non-Af 44 L Glucose 136 H Lactic Acid 5.8 H Calcium 10.6 H AST 45 H Total Protein 9.9 H Albumin 5.1 H Urine Protein Urine Ketones Urine Blood Urine Nitrite Urine Urobilinogen Ur Leukocyte Esterase Urine Ascorbic Acid 01/21/19 01/21/19 16:00 16:43 WBC Seg Neuts % (Manual) Lymphocytes % (Manual) Abs Neuts (Manual) Abs Monocytes (Manual) Carbon Dioxide Anion Gap BUN Creatinine Est GFR ( Amer) Est GFR (MDRD) Non-Af Glucose Lactic Acid 5.0 H Calcium AST Total Protein Albumin Urine Protein 100 H Urine Ketones 20 H Urine Blood SMALL H Urine Nitrite POSITIVE H Urine Urobilinogen 2.0 H Ur Leukocyte Esterase LARGE H Urine Ascorbic Acid 20 H Discharge - Discharge Clinical Impression: Acute pyelonephritis Sepsis Qualifiers: Sepsis type: sepsis due to unspecified organism Sepsis acute organ dysfunction status: without acute organ dysfunction Qualified Code(s): A41.9 - Sepsis, unspecified organism Condition: Serious Disposition: ADMITTED INPATIENT Admitting Provider: Juan (Hospitalist) Unit Admitted: Medical Floor
[2019-01-21 12:39] LABS: ALBUMIN 5.1 g/dL (3.5-5.0); ALKALINE PHOSPHATASE 108 U/L (38-126); ASPARTATE AMINO TRANSFERASE 45 U/L (14-36); BILIRUBIN,DIRECT 0.2 mg/dL (0.0-0.4); BILIRUBIN,TOTAL 0.5 mg/dL (0.2-1.3); BLOOD UREA NITROGEN 23 mg/dL (7-20); CALCIUM 10.6 mg/dL (8.4-10.2); GLUCOSE 136 mg/dL (75-110); TOTAL PROTEIN 9.9 g/dL (6.3-8.2)
[2019-01-21 12:44] LABS: CARBON DIOXIDE 17 mmol/L (22-30); CHLORIDE 104 mmol/L (98-107)
[2019-01-21 12:47] LABS: ANION GAP 24 (5-19)
[2019-01-21 12:49] LABS: ABSOLUTE LYMPHOCYTES# (MANUAL) 2.2 10^3/uL (0.5-4.7); ABSOLUTE MONOCYTES # (MANUAL) 1.5 10^3/uL (0.1-1.4); BASOPHILS % (MANUAL) 0 % (0-2); EOSINOPHILS % (MANUAL) 0 % (0-6); LYMPHOCYTES % (MANUAL) 9 % (13-45); MONOCYTES % (MANUAL) 6 % (3-13); SEGMENTED NEUTROPHILS % (MAN) 85 % (42-78); TOTAL CELLS COUNTED 100
[2019-01-21 12:50] LABS: PLATELET COMMENT ADEQUATE; RBC MORPHOLOGY COMMENT NORMO-CYTIC/CHROMIC
--- NOTE | 2019-01-21 13:38 | RADIOLOGY REPORT (SQ) ---
EXAM DESCRIPTION: CT ABD/PELVIS NO ORAL OR IV COMPLETED DATE/TIME: 01/21/2019 1:16 pm REASON FOR STUDY: flank pain right COMPARISON: Renal ultrasound 10/06/2018 KUB 12/18/2015 CT abdomen pelvis 10/02/2015 TECHNIQUE: CT scan of the abdomen and pelvis performed without intravenous or oral contrast. Images reviewed with lung, soft tissue, and bone windows. Reconstructed coronal and sagittal MPR images revi ewed. All images stored on PACS. All CT scanners at this facility use dose modulation, iterative reconstruction, and/or weight based d osing when appropriate to reduce radiation dose to as low as reasonably achievable (ALARA). [facility]: Dose Right [facility]: CareDose [facility]: Dose Right [facility]: Teradose 4D [facility]: Smart Iotera RADIATION DOSE: CT Rad equipment meets quality standard of care and radiation dose reduction techniq ues were employed. CTDIvol: 4.8 mGy. DLP: 238 mGy-cm.mGy. LIMITATIONS: None. FINDINGS: On coronal images 38 through 41, sagittal images 27-31, and axial images 39-46, a retrocec al appendix is present with surrounding inflammatory change in the periappendiceal fat. Although the appendix is not overall enlarged, inflammation is worrisome for acute appendicitis. This report was called to Dr. Huerta in the emergency room 1330 hours 01/21/2019. No adjacent free intraperitone al air. No right-sided free intraperitoneal fluid. LOWER CHEST: No significant findings. No nodules or infiltrates. NON-CONTRASTED LIVER, SPLEEN, ADRENALS: Evaluation limited by lack of IV contrast. No identified sign ificant masses. PANCREAS: No masses. No peripancreatic inflammatory changes. GALLBLADDER: No identified stones by CT criteria. No inflammatory changes to suggest cholecystitis. RIGHT KIDNEY AND URETER: No suspicious masses. Assessment limited by lack of IV contrast. No signif icant calcifications. No hydronephrosis or hydroureter. LEFT KIDNEY AND URETER: No suspicious masses. Assessment limited by lack of IV contrast. 4 mm left lower pole intrarenal nonobstructive stone, 300 Hounsfield units in density, best shown on coronal im ages 38-63. No hydronephrosis or hydroureter. AORTA AND RETROPERITONEUM: No aneurysm. No retroperitoneal masses or adenopathy. BOWEL AND PERITONEAL CAVITY: No obvious masses or inflammatory changes. No free fluid. APPENDIX: As above PELVIS, BLADDER, AND ABDOMINAL WALL:No abnormal masses. No free fluid. Bladder normal. BONES: No significant findings. OTHER: No other significant finding. IMPRESSION: Inflamed retrocecal appendix. Findings discussed with the emergency room attending miguel tuttle COMMENT: Quality ID # [id number]: Final reports with documentation of one or more dose reduction techniques (e.g., Automated exposure control, adjustment of the mA and/or kV according to patient size, use of iterative reconstruction technique) TECHNICAL DOCUMENTATION: JOB ID: [id number] [email or web address]- All Rights Reserved Reading location - IP/workstation name: [email or web address]
[2019-01-21] MEDS ORDERED: METRONIDAZOLE 500 MG/NS RTU 500 MG/100 ML RTUPB IV ONE (13:42)
[2019-01-21] MEDS ORDERED: CIPROFLOXACIN 400 MG/D5W RTU 400 MG/200 ML RTUPB IV ONE (13:43)
--- NOTE | 2019-01-21 14:36 | RADIOLOGY REPORT (SQ) ---
EXAM DESCRIPTION: CHEST SINGLE VIEW COMPLETED DATE/TIME: 01/21/2019 2:19 pm REASON FOR STUDY: Sepsis COMPARISON: None. EXAM PARAMETERS: NUMBER OF VIEWS: One view. TECHNIQUE: Single frontal radiographic view of the chest acquired. RADIATION DOSE: NA LIMITATIONS: None. FINDINGS: LUNGS AND PLEURA: No opacities, masses or pneumothorax. No pleural effusion. MEDIASTINUM AND HILAR STRUCTURES: No masses. Contour normal. HEART AND VASCULAR STRUCTURES: Heart normal in size. Normal vasculature. BONES: No acute findings. HARDWARE: None in the chest. OTHER: No other significant finding. IMPRESSION: NO ACUTE RADIOGRAPHIC FINDING IN THE CHEST. TECHNICAL DOCUMENTATION: JOB ID: [id number] [employer]- All Rights Reserved Reading location - IP/workstation name: [email or web address]
[2019-01-21] MEDS ORDERED: PROMETHAZINE HCL INJ 25 MG/1 ML VIAL IM ONE (15:26)
[2019-01-21] MEDS ORDERED: NORMAL SALINE 1000 ML 1,000 ML IV PRN (15:46)
[2019-01-21] MEDS ORDERED: MORPHINE SULFATE 10 MG/ML INJ ONE (16:55)
[2019-01-21] MEDS: NORMAL SALINE 1000 ML 1,000 ML IV PRN ×2 (16:57→17:30)
[2019-01-21 17:17] LABS: APPEARANCE,URINE CLOUDY; BILIRUBIN,URINE NEGATIVE (NEGATIVE); GLUCOSE, URINE NEGATIVE (NEGATIVE); KETONES,URINE 20 mg/dL (NEGATIVE); LEUKOCYTE ESTERASE,URINE LARGE (NEGATIVE); NITRITE,URINE POSITIVE (NEGATIVE); PROTEIN,URINE 100 mg/dL (NEGATIVE); URINE SPECIFIC GRAVITY 1.025
[2019-01-21 17:18] LABS: COLOR,URINE DARK YELLOW
[2019-01-21] MEDS ORDERED: ONDANSETRON HCL INJ/PF 4 MG/2 ML SDV IV ONE (17:26)
[2019-01-21 18:54] LABS: URINE AMPHETAMINES SCREEN NEGATIVE; URINE BARBITURATES SCREEN NEGATIVE; URINE BENZODIAZEPINES SCREEN NEGATIVE; URINE COCAINE SCREEN NEGATIVE; URINE METHADONE SCREEN NEGATIVE; URINE PHENCYCLIDINE SCREEN NEGATIVE
[2019-01-21] MEDS ORDERED: MORPHINE SULFATE 10 MG/ML INJ IV PRN ×2 (18:54→20:16)
[2019-01-21 18:57] LABS: URINE MARIJUANA (THC) SCREEN UNCONFIRMED POSITIVE
--- NOTE | 2019-01-21 18:58 | RADIOLOGY REPORT (SQ) ---
EXAM DESCRIPTION: CT ABD/PELVIS WITH IV ORAL COMPLETED DATE/TIME: 01/21/2019 6:38 pm REASON FOR STUDY: r/o appendicitis fever, white count, pyelonephritis versus appendicitis with right flank pain COMPARISON: None. TECHNIQUE: CT scan of the abdomen and pelvis performed using helical scanning technique with dynamic intravenous contrast injection. Patient drank oral contrast. Images reviewed with lung, soft tissue , and bone windows. Reconstructed coronal and sagittal MPR images reviewed. Delayed images for evalua tion of the urinary system also acquired. All images stored on PACS. All CT scanners at this facility use dose modulation, iterative reconstruction, and/or weight based d osing when appropriate to reduce radiation dose to as low as reasonably achievable (ALARA). [facility]: Dose Right [facility]: CareDose [facility]: Dose Right [facility]: Teradose 4D [facility]: [employer] CONTRAST TYPE AND DOSE: contrast/concentration: Isovue 350.00 mg/ml; Total Contrast Delivered: 55.0 ml; Total Saline Delivered: 66.0 ml RENAL FUNCTION: Creatinine 1.4 RADIATION DOSE: CT Rad equipment meets quality standard of care and radiation dose reduction techniq ues were employed. CTDIvol: 4.8 - 5.2 mGy. DLP: 536 mGy-cm.. LIMITATIONS: None. FINDINGS: A normal appendix fills with oral contrast on axial images 58 through 67. The right kidney is abnormal, wedge-shaped cortical areas of decreased cortical enhancement are seen suggestive of pyelonephritis. No discrete perinephric or intrarenal abscess. LOWER CHEST: Minimal left basilar airspace disease is present atelectasis favored over pneumonia LIVER: Normal size. No masses. No dilated ducts. SPLEEN: Normal size. No focal lesions. PANCREAS: No masses. No significant calcifications. No adjacent inflammation or peripancreatic fluid collections. Pancreatic duct not dilated. GALLBLADDER: No identified stones by CT criteria. No inflammatory changes to suggest cholecystitis. ADRENAL GLANDS: No significant masses or asymmetry. RIGHT KIDNEY AND URETER: No solid masses. No significant calcifications. No hydronephrosis or hyd roureter. There are wedge-shaped areas of cortical decreased enhancement suggestive of pyelonephriti s. Minimal perinephric inflammation. Report discussed with Dr. Huerta. LEFT KIDNEY AND URETER: No solid masses. 4 mm left lower pole intrarenal nonobstructive stone. No hydronephrosis or hydroureter. AORTA AND VESSELS: No aneurysm. No dissection. Renal arteries, SMA, celiac without stenosis. RETROPERITONEUM: No retroperitoneal adenopathy, hemorrhage or masses. BOWEL AND PERITONEAL CAVITY: No masses or inflammatory changes. No free fluid or peritoneal masses. APPENDIX: Normal. Best shown on axial images 58 through 67 PELVIS: No mass. No free fluid. Conn catheter drains the urinary bladder. Normal size uterus and ovaries ABDOMINAL WALL: No masses. No hernias. BONES: No significant or acute findings. OTHER: No other significant finding. IMPRESSION: Pyelonephritis right kidney. Normal appendix. TECHNICAL DOCUMENTATION: JOB ID: [id number] Quality ID # [id number]: Final reports with documentation of one or more dose reduction techniques (e.g., Au tomated exposure control, adjustment of the mA and/or kV according to patient size, use of iterative reconstruction technique) 2010 [employer]- All Rights Reserved Reading location - IP/workstation name: [email or web address]
[2019-01-21] MEDS ORDERED: PROCHLORPERAZINE EDISYLATE INJ 10 MG/2 ML VIAL IV ONE (19:34)
--- NOTE | 2019-01-21 19:50 | PDOC H&P ---
History of Present Illness Admission Date/PCP: 01/21/2019 19:10 No local PCP Patient complains of: Right flank pain History of Present Illness: JOEY CALVO is a 23 year old female who presented to the emergency room with a 3-day history of right flank pain. She admits that her intermittent sharp right flank pain has gradually worsened in intensity and episodes have become more frequent over the last 3 days, today becoming severe and almost continuous. The pain does not radiate from the right flank but has been accompanied by nausea and vomiting beginning today. She denies other associated or accompanying signs and symptoms. She admits prior similar pain with a kidney stone in the past. She has not identified any aggravating or ameliorating factors for her right flank pain. In the emergency room she was found to have an elevated white blood cell count of 24,600, marked pyuria with positive urine nitrite, a lactic acid of 5.[address] scan with evidence of right pyelone phritis. Patient was subsequently admitted to hospital for further evaluation treatment. Past Medical History Cardiac Medical History: Denies: Coronary Artery Disease, Hypertension Pulmonary Medical History: Denies: Asthma, Chronic Obstructive Pulmonary Disease (COPD) EENT Medical History: Denies: Cataracts, Ears - Hearing aids Neurological Medical History: Reports: Migraine, Seizures Denies: Hemorrhagic CVA, Ischemic CVA, Multiple Sclerosis Endocrine Medical History: Denies: Diabetes Mellitus Type 1, Diabetes Mellitus Type 2, Hyperthyroidism, Hypothyroidism Renal/ Medical History: Reports: Nephrolithiasis Denies: Chronic Kidney Disease Malignancy Medical History: Reports: None GI Medical History: Denies: Cirrhosis, Crohn's Disease, Hepatitis, Ulcerative Colitis Musculoskeltal Medical History: Denies: Arthritis, Fibromyalgia, Gout Skin Medical History: Denies: Eczema, Psoriasis Psychiatric Medical History: Reports: Attention Deficit Hyperactivity Disorder, Bipolar Disorder, Depression, Substance Abuse, Tobacco Dependency Denies: Alcohol Dependency Traumatic Medical History: Reports: None Hematology: Denies: Anemia, Bleeding Tendencies Infectious Medical History: Reports: None Past Surgical History Past Surgical History: Reports: Other - Ureteral stent, lithotripsy Social History Information Source: Patient Lives with: Family Smoking Status: Current Every Day Smoker Electronic Cigarette use?: No Frequency of Alcohol Use: None Hx Recreational Drug Use: Yes Drugs: Marijuana Hx Prescription Drug Abuse: No - Advance Directive Resuscitation Status: Full Code Surrogate healthcare decision maker:: Patel Briones Family History Family History: denies: CAD, CVA, DM, Hypertension, Malignancy Parental Family History Reviewed: Yes Children Family History Reviewed: No Sibling(s) Family History Reviewed.: Yes Medication/Allergy Home Medications: No Home Medications 01/21/19 Allergies/Adverse Reactions: Penicillins Allergy (Severe, Verified 10/06/18 15:54) hydrocodone Allergy (Verified 10/06/18 15:54) grape juice Allergy (Mild, Uncoded 10/06/18 15:54) Hives mustard Allergy (Mild, Uncoded 10/06/18 15:54) Hives pickles Allergy (Mild, Uncoded 10/06/18 15:54) Hives Review of Systems Constitutional: ABSENT: chills, fever(s) Eyes: ABSENT: visual disturbances, other - Eye pain Ears: ABSENT: hearing changes, other - Ear pain Nose, Mouth, and Throat: ABSENT: mouth pain, sore throat Cardiovascular: ABSENT: chest pain, palpitations Respiratory: ABSENT: cough, dyspnea Gastrointestinal: PRESENT: as per HPI, abdominal pain - Right flank, nausea, vomiting. ABSENT: constipation, diarrhea Genitourinary: PRESENT: dysuria. ABSENT: hematuria Musculoskeletal: PRESENT: as per HPI, back pain. ABSENT: joint swelling, muscle weakness Integumentary: ABSENT: pruritus, rash Neurological: ABSENT: confusion, convulsions, focal weakness, memory loss, syncope Psychiatric: ABSENT: anxiety, depression Endocrine: ABSENT: cold intolerance, heat intolerance Hematologic/Lymphatic: ABSENT: easy bleeding, easy bruising Allergic/Immunologic: ABSENT: seasonal rhinorrhea Physical Exam Vital Signs: Temp Pulse Resp BP Pulse Ox 97.9 F 96 21 H 101/57 L 98 01/21/19 15:21 01/21/19 15:21 01/21/19 19:00 01/21/19 18:01 01/21/19 19:00 Intake & Output 01/19/19 01/20/19 01/21/19 23:59 23:59 23:59 Intake Total 5300 Balance 5300 Weight 62.596 kg General appearance: PRESENT: cooperative, mild distress - Secondary to right flank pain Head exam: PRESENT: atraumatic, normocephalic Eye exam: PRESENT: conjunctiva pink. ABSENT: conjunctival injection, scleral icterus Ear exam: PRESENT: normal external ear exam. ABSENT: bleeding, drainage Mouth exam: PRESENT: dry mucosa, neck supple Neck exam: ABSENT: thyromegaly, tracheal deviation Respiratory exam: PRESENT: clear to auscultation frank, symmetrical, unlabored Cardiovascular exam: PRESENT: RRR. ABSENT: clicks, gallop, rubs Pulses: PRESENT: normal radial pulses, normal dorsalis pedis pul Vascular exam: PRESENT: normal capillary refill. ABSENT: pallor GI/Abdominal exam: PRESENT: normal bowel sounds, soft, tenderness - Right flank tenderness to palpation and percussion Rectal exam: PRESENT: deferred Extremities exam: ABSENT: joint swelling, pedal edema Musculoskeletal exam: ABSENT: deformity, dislocation Neurological exam: PRESENT: alert, oriented to person, oriented to place, oriented to time, oriented to situation, CN II-XII grossly intact. ABSENT: motor sensory deficit Psychiatric exam: PRESENT: appropriate affect, normal mood Skin exam: PRESENT: dry, intact, warm. ABSENT: jaundice, rash, urticaria Results Laboratory Results: 01/21/19 12:00 01/21/19 12:00 01/21/19 01/21/19 01/21/19 12:00 12:00 12:00 WBC 24.6 H RBC 4.82 Hgb 13.7 Hct 40.8 MCV 85 MCH 28.4 MCHC 33.6 RDW 13.9 Plt Count 314 Seg Neutrophils % Not Reportable Sodium 144.5 Potassium 4.0 Chloride 104 Carbon Dioxide 17 L Anion Gap 24 H BUN 23 H Creatinine 1.44 H Est GFR ( Amer) 54 L Glucose 136 H Lactic Acid Calcium 10.6 H Total Bilirubin 0.5 AST 45 H Alkaline Phosphatase 108 Total Protein 9.9 H Albumin 5.1 H Serum HCG, Qual NEGATIVE Urine Color Urine Appearance Urine pH Ur Specific [place] Urine Protein Urine Glucose (UA) Urine Ketones Urine Blood Urine Nitrite Ur Leukocyte Esterase Urine WBC (Auto) Urine RBC (Auto) 01/21/19 01/21/19 01/21/19 12:00 12:00 16:00 WBC RBC Hgb Hct MCV MCH MCHC RDW Plt Count Seg Neutrophils % Sodium Potassium Chloride Carbon Dioxide Anion Gap BUN Creatinine Est GFR ( Amer) Glucose Lactic Acid Cancelled 5.8 H 5.0 H Calcium Total Bilirubin AST Alkaline Phosphatase Total Protein Albumin Serum HCG, Qual Urine Color Urine Appearance Urine pH Ur Specific [place] Urine Protein Urine Glucose (UA) Urine Ketones Urine Blood Urine Nitrite Ur Leukocyte Esterase Urine WBC (Auto) Urine RBC (Auto) 01/21/19 16:43 WBC RBC Hgb Hct MCV MCH MCHC RDW Plt Count Seg Neutrophils % Sodium Potassium Chloride Carbon Dioxide Anion Gap BUN Creatinine Est GFR ( Amer) Glucose Lactic Acid Calcium Total Bilirubin AST Alkaline Phosphatase Total Protein Albumin Serum HCG, Qual Urine Color DARK YELLOW Urine Appearance CLOUDY Urine pH 5.0 Ur Specific [place] 1.025 Urine Protein 100 H Urine Glucose (UA) NEGATIVE Urine Ketones 20 H Urine Blood SMALL H Urine Nitrite POSITIVE H Ur Leukocyte Esterase LARGE H Urine WBC (Auto) 120 Urine RBC (Auto) 20 Impressions: Abdomen/Pelvis CT 01/21/19 12:32 IMPRESSION: Inflamed retrocecal appendix. Findings discussed with the emergency room attending physician Chest X-Ray 01/21/19 13:45 IMPRESSION: NO ACUTE RADIOGRAPHIC FINDING IN THE CHEST. Assessment and Plan - Diagnosis (1) Acute pyelonephritis Is this a current diagnosis for this admission?: Yes (2) Acute right flank pain Is this a current diagnosis for this admission?: Yes (3) Nausea and vomiting Qualifiers: Vomiting type: unspecified Vomiting Intractability: non-intractable Qualified Code(s): R11.2 - Nausea with vomiting, unspecified Is this a current diagnosis for this admission?: Yes (4) SIRS (systemic inflammatory response syndrome) Is this a current diagnosis for this admission?: Yes (5) Tobacco use disorder, moderate, dependence Is this a current diagnosis for this admission?: Yes - Plan Summary Summary: Patient has been admitted to the medical floor where she will receive routine supportive and symptomatic cares. She will be treated with IV fluids utilizing D5LR and she will receive IV antibiotics utilizing meropenem. Analgesia will be provided with morphine sulfate 2 to 4 mg IV every 2 hours on an as-needed basis using a sliding scale for pain. Nausea and vomiting will be treated with Phenergan 12.5 mg IV every 4 hours as needed. Serial serum lactates and daily CBCs and metabolic profiles will be obtained as part of her ongoing assessment and treatment. Smoking cessation is advised and counseled briefly at the bedside. A nicotine replacement patch is available for the patient's use, if desired. - Time Time Spent with patient: 25-34 minutes Smoking Cessation Education: 3 to 10 minutes Medications reviewed and adjusted accordingly: Yes Anticipated discharge: Home - Inpatient Certification Based on my medical assessment, after consideration of the patient's comorbidities, presenting symptoms, or acuity I expect that the services needed warrant INPATIENT care.: Yes I certify that my determination is in accordance with my understanding of Medicare's requirements for reasonable and necessary INPATIENT services [42 CFR 412.3e].: Yes Medical Necessity: Need Close Monitoring Due to Risk of Patient Decompensation, Need For IV Fluids, Need for Pain Control, Need for IV Antibiotics, Risk of Complication if Not Cared For in Hospital
[2019-01-21] MEDS ORDERED: ZOLPIDEM TARTRATE 5 MG TABLET PO PRN (20:12)
[2019-01-21] MEDS ORDERED: MAG HYDROX/AL HYDROX/SIMETH SUSP 30 ML UDCUP PO PRN (20:12)
[2019-01-21] MEDS ORDERED: MAGNESIUM HYDROXIDE SUSP 30 ML UDCUP PO PRN (20:12)
[2019-01-21] MEDS ORDERED: DEXTROSE 5%-LACTATED RINGERS 1,000 ML IV PRN (20:12)
[2019-01-21] MEDS ORDERED: ACETAMINOPHEN 650 MG SUPP.RECT PR PRN (20:16)
[2019-01-21] MEDS ORDERED: NICOTINE 21 MG/24 HR PATCH.TD24 TD PRN (20:16)
[2019-01-21] MEDS ORDERED: ACETAMINOPHEN 325 MG TABLET PO PRN (20:16)
[2019-01-21] MEDS ORDERED: MEROPENEM 1 GM VIAL IV SCH (20:30)
[2019-01-21] MEDS: FAMOTIDINE 20 MG TABLET PO SCH (22:58)
[2019-01-21] MEDS: MEROPENEM 1 GM in NORMAL SALINE 50 ML IV SCH (22:59)
[2019-01-21] MEDS: HEPARIN SOD (PORCINE) 5,000 UNIT/ML 1 ML VIAL SUBCUT SCH (23:00)
[2019-01-22] MEDS ORDERED: HALOPERIDOL LACTATE INJ 5 MG/1 ML VIAL IV ONE (02:36)
[2019-01-22] MEDS: MORPHINE SULFATE 10 MG/ML INJ IV PRN ×5 (03:53→23:07)
[2019-01-22 04:21] LABS: HEMATOCRIT 31.5 % (36.0-47.0); MEAN CORPUSCULAR HEMOGLOBIN 28.9 pg (27.0-33.4); MEAN CORPUSCULAR HGB CONC 33.6 g/dL (32.0-36.0); MEAN CORPUSCULAR VOLUME 86 fl (80-97); PLATELET COUNT 215 10^3/uL (150-450); RED BLOOD COUNT 3.68 10^6/uL (3.72-5.28); WHITE BLOOD COUNT 16.4 10^3/uL (4.0-10.5)
[2019-01-22 04:22] LABS: HEMOGLOBIN 10.6 g/dL (12.0-15.5)
[2019-01-22] MEDS ORDERED: RINGERS SOLUTION,LACTATED 1,000 ML IV ONE (04:30)
[2019-01-22 04:35] LABS: ANION GAP 10 (5-19); BLOOD UREA NITROGEN 13 mg/dL (7-20); CALCIUM 8.7 mg/dL (8.4-10.2); CARBON DIOXIDE 17 mmol/L (22-30); CHLORIDE 113 mmol/L (98-107); GLUCOSE 109 mg/dL (75-110); POTASSIUM 4.1 mmol/L (3.6-5.0)
[2019-01-22] MEDS: MEROPENEM 1 GM in NORMAL SALINE 50 ML IV SCH ×3 (05:38→21:17)
[2019-01-22] MEDS: HEPARIN SOD (PORCINE) 5,000 UNIT/ML 1 ML VIAL SUBCUT SCH ×3 (05:40→21:17)
[2019-01-22] MEDS: PROMETHAZINE HCL INJ 25 MG/1 ML VIAL IV PRN ×3 (07:36→23:08)
[2019-01-22] MEDS: FAMOTIDINE 20 MG TABLET PO SCH ×2 (10:24→21:17)
[2019-01-22] MEDS: DOCUSATE SODIUM 100 MG CAPSULE PO SCH ×2 (10:24→17:21)
--- NOTE | 2019-01-22 10:26 | PDOC PROGRESS REPORT ---
Subjective Progress Note for:: 01/22/19 Subjective:: 01/22/2019-continued flank pain right Reason For Visit: ACUTE RIGHT PYELONEPHRITIS,SIRS Physical Exam Vital Signs: Temp Pulse Resp BP Pulse Ox 98.8 F 70 20 133/84 H 95 01/22/19 07:41 01/22/19 07:41 01/22/19 07:41 01/22/19 07:41 01/22/19 07:41 Intake & Output 01/21/19 01/22/19 01/23/19 06:59 06:59 06:59 Intake Total 6537 Balance 6537 Weight 47.5 kg General appearance: PRESENT: no acute distress, well-developed, well-nourished Head exam: PRESENT: atraumatic, normocephalic Eye exam: PRESENT: conjunctiva pink, EOMI, PERRLA. ABSENT: scleral icterus Ear exam: PRESENT: normal external ear exam Mouth exam: PRESENT: moist, tongue midline Neck exam: ABSENT: carotid bruit, JVD, lymphadenopathy, thyromegaly Respiratory exam: PRESENT: clear to auscultation frank. ABSENT: rales, rhonchi, wheezes Cardiovascular exam: PRESENT: RRR. ABSENT: diastolic murmur, rubs, systolic murmur Pulses: PRESENT: normal dorsalis pedis pul Vascular exam: PRESENT: normal capillary refill GI/Abdominal exam: PRESENT: normal bowel sounds, soft. ABSENT: distended, guarding, mass, organolmegaly, rebound, tenderness Rectal exam: PRESENT: deferred Extremities exam: PRESENT: full ROM. ABSENT: calf tenderness, clubbing, pedal edema Neurological exam: PRESENT: alert, awake, oriented to person, oriented to place, oriented to time, oriented to situation, CN II-XII grossly intact. ABSENT: motor sensory deficit Psychiatric exam: PRESENT: appropriate affect, normal mood. ABSENT: homicidal ideation, suicidal ideation Skin exam: PRESENT: dry, intact, warm. ABSENT: cyanosis, rash Results Laboratory Results: 01/22/19 04:10 01/22/19 04:10 01/21/19 01/21/19 01/21/19 12:00 12:00 12:00 WBC 24.6 H RBC 4.82 Hgb 13.7 Hct 40.8 MCV 85 MCH 28.4 MCHC 33.6 RDW 13.9 Plt Count 314 Seg Neutrophils % Not Reportable Sodium 144.5 Potassium 4.0 Chloride 104 Carbon Dioxide 17 L Anion Gap 24 H BUN 23 H Creatinine 1.44 H Est GFR ( Amer) 54 L Glucose 136 H Lactic Acid Calcium 10.6 H Magnesium Total Bilirubin 0.5 AST 45 H Alkaline Phosphatase 108 Total Protein 9.9 H Albumin 5.1 H Serum HCG, Qual NEGATIVE Urine Color Urine Appearance Urine pH Ur Specific [place] Urine Protein Urine Glucose (UA) Urine Ketones Urine Blood Urine Nitrite Ur Leukocyte Esterase Urine WBC (Auto) Urine RBC (Auto) 01/21/19 01/21/19 01/21/19 12:00 12:00 16:00 WBC RBC Hgb Hct MCV MCH MCHC RDW Plt Count Seg Neutrophils % Sodium Potassium Chloride Carbon Dioxide Anion Gap BUN Creatinine Est GFR ( Amer) Glucose Lactic Acid Cancelled 5.8 H 5.0 H Calcium Magnesium Total Bilirubin AST Alkaline Phosphatase Total Protein Albumin Serum HCG, Qual Urine Color Urine Appearance Urine pH Ur Specific [place] Urine Protein Urine Glucose (UA) Urine Ketones Urine Blood Urine Nitrite Ur Leukocyte Esterase Urine WBC (Auto) Urine RBC (Auto) 01/21/19 01/21/19 01/22/19 16:43 20:33 00:15 WBC RBC Hgb Hct MCV MCH MCHC RDW Plt Count Seg Neutrophils % Sodium Potassium Chloride Carbon Dioxide Anion Gap BUN Creatinine Est GFR ( Amer) Glucose Lactic Acid 2.0 1.0 Calcium Magnesium Total Bilirubin AST Alkaline Phosphatase Total Protein Albumin Serum HCG, Qual Urine Color DARK YELLOW Urine Appearance CLOUDY Urine pH 5.0 Ur Specific [place] 1.025 Urine Protein 100 H Urine Glucose (UA) NEGATIVE Urine Ketones 20 H Urine Blood SMALL H Urine Nitrite POSITIVE H Ur Leukocyte Esterase LARGE H Urine WBC (Auto) 120 Urine RBC (Auto) 01/22/19 01/22/19 01/22/19 04:10 04:10 04:10 WBC 16.4 H RBC 3.68 L Hgb 10.6 L D Hct 31.5 L MCV 86 MCH 28.9 MCHC 33.6 RDW 14.0 Plt Count 215 Seg Neutrophils % Sodium 140.2 Potassium 4.1 Chloride 113 H Carbon Dioxide 17 L Anion Gap 10 BUN 13 Creatinine 0.55 Est GFR ( Amer) > 60 Glucose 109 Lactic Acid 0.8 Calcium 8.7 Magnesium 2.1 Total Bilirubin AST Alkaline Phosphatase Total Protein Albumin Serum HCG, Qual Urine Color Urine Appearance Urine pH Ur Specific [place] Urine Protein Urine Glucose (UA) Urine Ketones Urine Blood Urine Nitrite Ur Leukocyte Esterase Urine WBC (Auto) Urine RBC (Auto) Impressions: Abdomen/Pelvis CT 01/21/19 12:32 IMPRESSION: Inflamed retrocecal appendix. Findings discussed with the [facility] room attending physician Chest X-Ray 01/21/19 13:45 IMPRESSION: NO ACUTE RADIOGRAPHIC FINDING IN THE CHEST. Assessment and Plan - Diagnosis (1) Acute pyelonephritis Is this a current diagnosis for this admission?: Yes Plan: 01/22/2019-patient remains on meropenem. Awaiting cultures for sensitivity. Continue to hydrate with normal saline at 100 mL an hour.. (2) Acute right flank pain Is this a current diagnosis for this admission?: Yes Plan: 01/22/2019-continue morphine as needed (3) Nausea and vomiting Qualifiers: Vomiting type: unspecified Vomiting Intractability: non-intractable Qualified Code(s): R11.2 - Nausea with vomiting, unspecified Is this a current diagnosis for this admission?: Yes Plan: 01/22/2019-continue antiemetics as needed (4) SIRS (systemic inflammatory response syndrome) Is this a current diagnosis for this admission?: Yes Plan: 01/22/2019-improved stable. Patient's lactic acid down to 0.7. Antibiotics continue as well as IV fluids. Continue to follow (5) Tobacco use disorder, moderate, dependence Is this a current diagnosis for this admission?: Yes Plan: -continue to educate about smoking cessation - Plan Summary Summary: Patient has been admitted to the medical floor where she will receive routine supportive and symptomatic cares. She will be treated with IV fluids utilizing D5LR and she will receive IV antibiotics utilizing meropenem. Analgesia will be provided with morphine sulfate 2 to 4 mg IV every 2 hours on an as-needed basis using a sliding scale for pain. Nausea and vomiting will be treated with Phenergan 12.5 mg IV every 4 hours as needed. Serial serum lactates and daily CBCs and metabolic profiles will be obtained as part of her ongoing assessment and treatment. Smoking cessation is advised and counseled briefly at the bedside. A nicotine replacement patch is available for the patient's use, if desired. - Time Time Spent with patient: 15-24 minutes - Inpatient Certification Based on my medical assessment, after consideration of the patient's comorbidities, presenting symptoms, or acuity I expect that the services needed warrant INPATIENT care.: Yes I certify that my determination is in accordance with my understanding of Medicare's requirements for reasonable and necessary INPATIENT services [42 CFR 412.3e].: Yes Medical Necessity: Need For IV Fluids, Need for Pain Control, Need for IV Antibiotics
[2019-01-22] MEDS: NORMAL SALINE 1000 ML 1,000 ML IV PRN ×2 (11:35→23:08)
[2019-01-22] MEDS ORDERED: PROMETHAZINE HCL INJ 25 MG/1 ML VIAL ONE (18:42)
[2019-01-22] MEDS ORDERED: PROMETHAZINE HCL INJ 25 MG/1 ML VIAL IV ONE (19:00)
[2019-01-23] MEDS: MORPHINE SULFATE 10 MG/ML INJ IV PRN ×6 (02:40→21:50)
[2019-01-23] MEDS: HEPARIN SOD (PORCINE) 5,000 UNIT/ML 1 ML VIAL SUBCUT SCH ×3 (05:12→22:02)
[2019-01-23] MEDS: PROMETHAZINE HCL INJ 25 MG/1 ML VIAL IV PRN ×4 (05:12→23:57)
[2019-01-23] MEDS: MEROPENEM 1 GM in NORMAL SALINE 50 ML IV SCH ×3 (05:12→21:48)
[2019-01-23 05:30] LABS: HEMATOCRIT 30.7 % (36.0-47.0); HEMOGLOBIN 10.3 g/dL (12.0-15.5); MEAN CORPUSCULAR HGB CONC 33.6 g/dL (32.0-36.0); MEAN CORPUSCULAR VOLUME 86 fl (80-97); PLATELET COUNT 218 10^3/uL (150-450); RED BLOOD COUNT 3.55 10^6/uL (3.72-5.28); WHITE BLOOD COUNT 10.4 10^3/uL (4.0-10.5)
--- NOTE | 2019-01-23 08:25 | PDOC PROGRESS REPORT ---
Subjective Progress Note for:: 01/23/19 Subjective:: 01/22/2019-continued flank pain right 01/23/2019-improved flank pain at this time no complaints Reason For Visit: ACUTE RIGHT PYELONEPHRITIS,SIRS Physical Exam Vital Signs: Temp Pulse Resp BP Pulse Ox 98.2 F 75 17 92/74 L 96 01/22/19 23:58 01/22/19 23:58 01/22/19 23:58 01/22/19 23:58 01/22/19 23:58 Intake & Output 01/22/19 01/23/19 01/24/19 06:59 06:59 06:59 Intake Total 6537 4167 Output Total 1275 Balance 6537 2892 Weight 47.5 kg 60.8 kg General appearance: PRESENT: no acute distress, well-developed, well-nourished Head exam: PRESENT: atraumatic, normocephalic Eye exam: PRESENT: conjunctiva pink, EOMI, PERRLA. ABSENT: scleral icterus Ear exam: PRESENT: normal external ear exam Mouth exam: PRESENT: moist, tongue midline Neck exam: ABSENT: carotid bruit, JVD, lymphadenopathy, thyromegaly Respiratory exam: PRESENT: clear to auscultation frank. ABSENT: rales, rhonchi, wheezes Cardiovascular exam: PRESENT: RRR. ABSENT: diastolic murmur, rubs, systolic murmur Pulses: PRESENT: normal dorsalis pedis pul Vascular exam: PRESENT: normal capillary refill GI/Abdominal exam: PRESENT: normal bowel sounds, soft. ABSENT: distended, guarding, mass, organolmegaly, rebound, tenderness Rectal exam: PRESENT: deferred Extremities exam: PRESENT: full ROM. ABSENT: calf tenderness, clubbing, pedal edema Neurological exam: PRESENT: alert, awake, oriented to person, oriented to place, oriented to time, oriented to situation, CN II-XII grossly intact. ABSENT: motor sensory deficit Psychiatric exam: PRESENT: appropriate affect, normal mood. ABSENT: homicidal ideation, suicidal ideation Skin exam: PRESENT: dry, intact, warm. ABSENT: cyanosis, rash Results Laboratory Results: 01/23/19 04:25 01/22/19 04:10 01/23/19 04:25 WBC 10.4 RBC 3.55 L Hgb 10.3 L Hct 30.7 L MCV 86 MCH 29.0 MCHC 33.6 RDW 14.0 Plt Count 218 Impressions: Abdomen/Pelvis CT 01/21/19 12:32 IMPRESSION: Inflamed retrocecal appendix. Findings discussed with the emergency room attending physician Chest X-Ray 01/21/19 13:45 IMPRESSION: NO ACUTE RADIOGRAPHIC FINDING IN THE CHEST. Assessment and Plan - Diagnosis (1) Acute pyelonephritis Is this a current diagnosis for this admission?: Yes Plan: 01/22/2019-patient remains on meropenem. Awaiting cultures for sensitivity. Continue to hydrate with normal saline at 100 mL an hour... 01/23/2019-patient remains on meropenem await cultures continue hydrating at this time (2) Acute right flank pain Is this a current diagnosis for this admission?: Yes Plan: 01/22/2019-continue morphine as needed 01/23/2019 continue morphine as needed (3) Nausea and vomiting Qualifiers: Vomiting type: unspecified Vomiting Intractability: non-intractable Qualified Code(s): R11.2 - Nausea with vomiting, unspecified Is this a current diagnosis for this admission?: Yes Plan: 01/22/2019-continue antiemetics as needed 12/23/2018 continue antiemetics (4) SIRS (systemic inflammatory response syndrome) Is this a current diagnosis for this admission?: Yes Plan: 01/22/2019-improved stable. Patient's lactic acid down to 0.7. Antibiotics continue as well as IV fluids. Continue to follow 01/23/2019-stable (5) Tobacco use disorder, moderate, dependence Is this a current diagnosis for this admission?: Yes Plan: -continue to educate about smoking cessation 01/23/2019 l-continue smoking cessation education - Plan Summary Summary: Patient has been admitted to the medical floor where she will receive routine supportive and symptomatic cares. She will be treated with IV fluids utilizing D5LR and she will receive IV antibiotics utilizing meropenem. Analgesia will be provided with morphine sulfate 2 to 4 mg IV every 2 hours on an as-needed basis using a sliding scale for pain. Nausea and vomiting will be treated with Phenergan 12.5 mg IV every 4 hours as needed. Serial serum lactates and daily CBCs and metabolic profiles will be obtained as part of her ongoing assessment and treatment. Smoking cessation is advised and counseled briefly at the bedside. A nicotine replacement patch is available for the patient's use, if desired. - Time Time Spent with patient: 15-24 minutes - Inpatient Certification Based on my medical assessment, after consideration of the patient's comorbidities, presenting symptoms, or acuity I expect that the services needed warrant INPATIENT care.: Yes I certify that my determination is in accordance with my understanding of Medicare's requirements for reasonable and necessary INPATIENT services [42 CFR 412.3e].: Yes Medical Necessity: Need for Pain Control, Need for IV Antibiotics
[2019-01-23] MEDS: DOCUSATE SODIUM 100 MG CAPSULE PO SCH ×2 (09:34→17:12)
[2019-01-23] MEDS: FAMOTIDINE 20 MG TABLET PO SCH ×2 (09:34→21:48)
[2019-01-23] MEDS: NORMAL SALINE 1000 ML 1,000 ML IV PRN (09:35)
[2019-01-24] MEDS: MORPHINE SULFATE 10 MG/ML INJ IV PRN (02:03)
--- NOTE | 2019-01-24 02:47 | Left Against Medical Advice ---
Against Medical Advice Admission Date/Time: 01/21/19 20:13 Primary Care Provider: Date of Patient Emigration: 01/24/19 - Diagnosis: (1) Acute pyelonephritis Is this a current diagnosis for this admission?: Yes (2) Acute right flank pain Is this a current diagnosis for this admission?: Yes (3) Nausea and vomiting Is this a current diagnosis for this admission?: Yes (4) SIRS (systemic inflammatory response syndrome) Is this a current diagnosis for this admission?: Yes (5) Tobacco use disorder, moderate, dependence Is this a current diagnosis for this admission?: Yes - Summary: Summary: Please see Admission and Progress Notes as well. JOEY CALVO is a 23 F, who LEFT AGAINST MEDICAL ADVICE. The Patient was admitted on 01/21/19 20:13.
[2019-01-24 03:38] VITALS: BP 120/85
== END 2019-01-24 02:45 | disposition left against medical advice (07) | DRG 690 ==
LOC: ER 09:26 → EH 20:13 → 4N 01-22 03:40 → 2N 01-24 02:41
PROVIDERS: ADMIT Emergency Medicine; ATTEND Emergency Medicine
DX: N10 Acute pyelonephritis (principal); R65.10 Systemic inflammatory response syndrome (SIRS) of non-infectious origin without acute organ dysfunction; F17.200 Nicotine dependence, unspecified, uncomplicated; Z53.29 Procedure and treatment not carried out because of patient's decision for other reasons; F90.9 Attention-deficit hyperactivity disorder, unspecified type; F31.9 Bipolar disorder, unspecified; F19.10 Other psychoactive substance abuse, uncomplicated; F12.90 Cannabis use, unspecified, uncomplicated; Z88.6 Allergy status to analgesic agent; Z88.0 Allergy status to penicillin; Z91.018 Allergy to other foods; Z71.6 Tobacco abuse counseling
CPT/HCPCS: 36415; 51702; 71045; 74176; 74177; 80048; 80053; 80307; 81001; 83605; 83735; 84703; 85025; 85027; 87040; 96361; 96365; 96366; 96367; 96372; 96375; 96376; 99285; J0744; J0780; J1630; J1644; J1885; J2185; J2270; J2405; J2550; J2765; J3490; J7030; J7120; J7121

== ENCOUNTER 2019-05-04 11:28 | Emergency (ER) | payer SELFPAY ==
[2019-05-04] MEDS ORDERED: KETOROLAC TROMETHAMINE INJ/PF 30 MG/1 ML SDV IV ONE ×2 (14:52→17:30)
[2019-05-04] MEDS ORDERED: ONDANSETRON HCL INJ/PF 4 MG/2 ML SDV IV ONE ×2 (14:52→17:30)
[2019-05-04] MEDS ORDERED: NORMAL SALINE 1000 ML 1,000 ML IV ONE (14:52)
--- NOTE | 2019-05-04 15:03 | ER Document Report ---
ED Medical Screen (RME) - General Chief Complaint: Flank Pain Stated Complaint: VOMITING Time Seen by Provider: 05/04/19 14:50 Notes: HPI: 23-year-old female with history of kidney stones and pyelonephritis presenting for right flank pain progressively worsening for 1 week, states she has had chills no definitive fever. Has had multiple episodes of vomiting. States she has had to have surgery several years ago for kidney stones. Does not have a urologist that she currently follows with. States pain feels like prior episode of pyelonephritis I have greeted and performed a rapid initial assessment of this patient. A comprehensive ED assessment and evaluation of the patient, analysis of test results and completion of the medical decision making process will be conducted by additional ED providers PHYSICAL EXAMINATION: GENERAL: Well-appearing, well-nourished and in moderate acute distress. HEAD: Atraumatic, normocephalic. EYES: sclera anicteric, conjunctiva are normal. ENT: Moist mucous membranes. NECK: Normal range of motion LUNGS: Normal work of breathing, clear to auscultation HEART: 2+ radial pulses bilaterally, mild tachycardia ABD: limited by positioning for exam in triage. Mild tenderness to the right flank with moderate right CVA tenderness on palpation EXTREMITIES: no pitting or edema. No cyanosis. NEUROLOGICAL: No focal neurological deficits. Moves all extremities spontaneously and on command. PSYCH: Normal mood, normal affect. SKIN: Warm, Dry, normal turgor, no rashes or lesions noted. TRAVEL OUTSIDE OF THE [place] IN LAST 30 DAYS: No - Related Data Allergies/Adverse Reactions: Penicillins Allergy (Severe, Verified 05/04/19 14:28) hydrocodone Allergy (Verified 05/04/19 14:28) grape juice Allergy (Mild, Uncoded 05/04/19 14:28) Hives mustard Allergy (Mild, Uncoded 05/04/19 14:28) Hives pickles Allergy (Mild, Uncoded 05/04/19 14:28) Hives vinegar Allergy (Uncoded 05/04/19 14:40) Past Medical History - Social History Frequency of alcohol use: None Drug Abuse: None - Past Medical History Cardiac Medical History: Denies: Hx Coronary Artery Disease, Hx Hypertension Pulmonary Medical History: Denies: Hx Asthma, Hx COPD Neurological Medical History: Reports: Hx Migraine, Hx Seizures Endocrine Medical History: Denies: Hx Diabetes Mellitus Type 1, Hx Diabetes Mellitus Type 2, Hx Hyperthyroidism, Hx Hypothyroidism Renal/ Medical History: Reports: Hx Kidney Stones. Denies: Hx Peritoneal Dialysis GI Medical History: Denies: Hx Cirrhosis, Hx Crohn's Disease, Hx Hepatitis, Hx Ulcerative Colitis Musculoskeltal Medical History: Denies Hx Arthritis, Denies Hx Fibromyalgia, Denies Hx Gout Skin Medical History: Denies Hx Eczema, Denies Hx Psoriasis Psychiatric Medical History: Reports: Hx Attention Deficit Hyperactivity Disorder, Hx Bipolar Disorder, Hx Depression Infectious Medical History: Denies: Hx Hepatitis Past Surgical History: Reports: Hx Gynecologic Surgery - D&C, Other - Ureteral stent, lithotripsy - Immunizations Immunizations up to date: Yes Hx Diphtheria, Pertussis, Tetanus Vaccination: - 2008 Physical Exam - Vital signs Vitals: Temp Pulse Resp BP Pulse Ox 97.5 F 78 20 116/72 93 05/04/19 11:31 05/04/19 11:31 05/04/19 11:31 05/04/19 11:31 05/04/19 11:31 Course - Vital Signs Vital signs: Temp Pulse Resp BP Pulse Ox 97.5 F 78 20 116/72 93 05/04/19 11:31 05/04/19 11:31 05/04/19 11:31 05/04/19 11:31 05/04/19 11:31
[2019-05-04 15:50] LABS: ABSOLUTE EOSINOPHILS # (AUTO) 0.1 10^3/uL (0.0-0.6); ABSOLUTE MONOCYTES (AUTO) 0.5 10^3/uL (0.1-1.4); ABSOLUTE NEUT (AUTO) 6.7 10^3/uL (1.7-8.2); BASOPHILS % (AUTO) 0.4 % (0-2); EOSINOPHILS % (AUTO) 0.6 % (0-6); HEMATOCRIT 40.8 % (36.0-47.0); HEMOGLOBIN 13.9 g/dL (12.0-15.5); LYMPHOCYTES % (AUTO) 29.1 % (13-45); MEAN CORPUSCULAR HEMOGLOBIN 29.9 pg (27.0-33.4); MEAN CORPUSCULAR HGB CONC 34.2 g/dL (32.0-36.0); MEAN CORPUSCULAR VOLUME 88 fl (80-97); MONOCYTES % (AUTO) 4.4 % (3-13); PLATELET COUNT 366 10^3/uL (150-450); RED BLOOD COUNT 4.65 10^6/uL (3.72-5.28); RED CELL DISTRIBUTION WIDTH 14.1 % (11.5-14.0); SEGMENTED NEUTROPHILS % (AUTO) 65.5 % (42-78); TOTAL CELLS COUNTED % (AUTO) 100 %; WHITE BLOOD COUNT 10.2 10^3/uL (4.0-10.5)
[2019-05-04 16:02] LABS: APPEARANCE,URINE CLOUDY; BILIRUBIN,URINE NEGATIVE (NEGATIVE); COLOR,URINE AMBER; GLUCOSE, URINE NEGATIVE (NEGATIVE); KETONES,URINE TRACE mg/dL (NEGATIVE); LEUKOCYTE ESTERASE,URINE LARGE (NEGATIVE); NITRITE,URINE NEGATIVE (NEGATIVE); PROTEIN,URINE 100 mg/dL (NEGATIVE); URINE SPECIFIC GRAVITY 1.025
[2019-05-04 16:09] LABS: ALBUMIN 4.8 g/dL (3.5-5.0); ALKALINE PHOSPHATASE 86 U/L (38-126); ANION GAP 9 (5-19); ASPARTATE AMINO TRANSFERASE 59 U/L (14-36); BILIRUBIN,TOTAL 0.5 mg/dL (0.2-1.3); BLOOD UREA NITROGEN 10 mg/dL (7-20); CARBON DIOXIDE 31 mmol/L (22-30); CHLORIDE 97 mmol/L (98-107); GLUCOSE 81 mg/dL (75-110); POTASSIUM 4.5 mmol/L (3.6-5.0); TOTAL PROTEIN 8.4 g/dL (6.3-8.2)
[2019-05-04] MEDS ORDERED: LEVOFLOXACIN 750 MG/D5W RTU 750 MG/150 ML RTUPB IV ONE (16:41)
--- NOTE | 2019-05-04 17:58 | RADIOLOGY REPORT (SQ) ---
EXAM DESCRIPTION: CT ABD/PELVIS NO ORAL OR IV COMPLETED DATE/TIME: 05/04/2019 5:16 pm REASON FOR STUDY: flank pain kidney stone hx COMPARISON: 01/21/2019 TECHNIQUE: CT scan of the abdomen and pelvis performed without intravenous or oral contrast. Images reviewed with lung, soft tissue, and bone windows. Reconstructed coronal and sagittal MPR images revi ewed. All images stored on PACS. All CT scanners at this facility use dose modulation, iterative reconstruction, and/or weight based d osing when appropriate to reduce radiation dose to as low as reasonably achievable (ALARA). [facility]: Dose Right [facility]: CareDose [facility]: Dose Right [facility]: Teradose 4D [facility]: [employer] RADIATION DOSE: CT Rad equipment meets quality standard of care and radiation dose reduction techniq ues were employed. CTDIvol: 5.3 mGy. DLP: 276 mGy-cm.mGy. LIMITATIONS: None. FINDINGS: LOWER CHEST: No significant findings. No nodules or infiltrates. NON-CONTRASTED LIVER, SPLEEN, ADRENALS: Evaluation limited by lack of IV contrast. No identified sign ificant masses. PANCREAS: No masses. No peripancreatic inflammatory changes. GALLBLADDER: No identified stones by CT criteria. No inflammatory changes to suggest cholecystitis. RIGHT KIDNEY AND URETER: No suspicious masses. Assessment limited by lack of IV contrast. No signif icant calcifications. No hydronephrosis or hydroureter. LEFT KIDNEY AND URETER: No suspicious masses. Assessment limited by lack of IV contrast. Nonobstruc ting lower pole stone measuring 4 mm, stable. No hydronephrosis or hydroureter. AORTA AND RETROPERITONEUM: No aneurysm. No retroperitoneal masses or adenopathy. BOWEL AND PERITONEAL CAVITY: No obvious masses or inflammatory changes. No free fluid. APPENDIX: Normal. PELVIS, BLADDER, AND ABDOMINAL WALL:No abnormal masses. No free fluid. Bladder normal. BONES: No significant findings. OTHER: No other significant finding. IMPRESSION: 1. Nonobstructing left lower pole stone measuring 4 mm, stable. 2. No other evidence of acute intra-abdominal/pelvic process. COMMENT: Quality ID # [id number]: Final reports with documentation of one or more dose reduction techniques (e.g., Automated exposure control, adjustment of the mA and/or kV according to patient size, use of iterative reconstruction technique) TECHNICAL DOCUMENTATION: JOB ID: [id number] 2010 [employer]- All Rights Reserved Reading location - IP/workstation name: [email or web address]
[2019-05-04 19:00] VITALS: BP 117/78
[2019-05-04] MEDS ORDERED: PHENAZOPYRIDINE HCL 100 MG TABLET PO ONE (19:45)
--- NOTE | 2019-05-04 19:50 | ER Document Report ---
ED General - General Chief Complaint: Flank Pain Stated Complaint: VOMITING Time Seen by Provider: 05/04/19 14:50 Mode of Arrival: Ambulatory Information source: Patient Notes: Patient is a 23-year-old female presenting to the emergency department chief complaint of headache and left-sided flank pain. Patient states she has a longstanding history of kidney stones and migraines. Patient denies any fever chills. She does report vomiting and diarrhea. Patient denies travel history trauma history or sick contacts. TRAVEL OUTSIDE OF THE [place] IN LAST 30 DAYS: No - HPI Onset: Yesterday Onset/Duration: Gradual, Worse Quality of pain: Throbbing Severity: Moderate Pain Level: 3 Associated symptoms: Headache, Nausea, Vomiting Exacerbated by: Denies Relieved by: Denies Similar symptoms previously: Yes Recently seen / treated by doctor: No - Related Data Allergies/Adverse Reactions: Penicillins Allergy (Severe, Verified 05/04/19 14:28) hydrocodone Allergy (Verified 05/04/19 14:28) grape juice Allergy (Mild, Uncoded 05/04/19 14:28) Hives mustard Allergy (Mild, Uncoded 05/04/19 14:28) Hives pickles Allergy (Mild, Uncoded 05/04/19 14:28) Hives vinegar Allergy (Uncoded 05/04/19 14:40) Past Medical History - General Information source: Patient - Social History Smoking Status: Current Every Day Smoker Smoking Education Provided: Yes Frequency of alcohol use: None Drug Abuse: None Family History: denies: CAD, CVA, DM, Hypertension, Malignancy Patient has suicidal ideation: No Patient has homicidal ideation: No - Past Medical History Cardiac Medical History: Denies: Hx Coronary Artery Disease, Hx Hypertension Pulmonary Medical History: Denies: Hx Asthma, Hx COPD Neurological Medical History: Reports: Hx Migraine, Hx Seizures Endocrine Medical History: Denies: Hx Diabetes Mellitus Type 1, Hx Diabetes Mellitus Type 2, Hx Hyperthyroidism, Hx Hypothyroidism Renal/ Medical History: Reports: Hx Kidney Stones. Denies: Hx Peritoneal Dialysis GI Medical History: Denies: Hx Cirrhosis, Hx Crohn's Disease, Hx Hepatitis, Hx Ulcerative Colitis Musculoskeletal Medical History: Denies Hx Arthritis, Denies Hx Fibromyalgia, Denies Hx Gout Skin Medical History: Denies Hx Eczema, Denies Hx Psoriasis Psychiatric Medical History: Reports: Hx Attention Deficit Hyperactivity Disorder, Hx Bipolar Disorder, Hx Depression Infectious Medical History: Denies: Hx Hepatitis Past Surgical History: Reports: Hx Gynecologic Surgery - D&C, Other - Ureteral stent, lithotripsy - Immunizations Immunizations up to date: Yes Hx Diphtheria, Pertussis, Tetanus Vaccination: - 2008 Review of Systems - Review of Systems Notes: REVIEW OF SYSTEMS: CONSTITUTIONAL : Denies fever, chills, or sweats. Denies recent illness. However patient is complaining of headache and flank pain. EENT: Denies eye, ear, throat, or mouth pain or symptoms. Denies nasal or sinus congestion. CARDIOVASCULAR: Denies chest pain. RESPIRATORY: Denies cough, cold, or chest congestion. Denies shortness of breath, difficulty breathing, or wheezing. GASTROINTESTINAL: Denies abdominal pain. Denies diarrhea. Denies constipation. GENITOURINARY: Left-sided flank pain MUSCULOSKELETAL: Denies neck or back pain or joint pain or swelling. SKIN: Denies rash or skin lesions. HEMATOLOGIC : Denies easy bruising or bleeding. NEUROLOGICAL: Denies altered mental status or loss of consciousness. Denies weakness or paralysis or loss of use of either side. Denies problems with gait or speech. Denies sensory or motor loss. PSYCHIATRIC: Denies suicidal or homicidal ideations 10 Systems are negative unless otherwise specified above Physical Exam - Vital signs Vitals: Temp Pulse Resp BP Pulse Ox 97.5 F 78 20 116/72 93 05/04/19 11:31 05/04/19 11:31 05/04/19 11:31 05/04/19 11:31 05/04/19 11:31 - Notes Notes: PHYSICAL EXAMINATION: GENERAL: Patient is alert and oriented x3 HEAD: Atraumatic, normocephalic. EYES: Pupils equal round and reactive to light, extraocular movements intact, sclera anicteric, conjunctiva are normal. ENT: nares patent, oropharynx clear without exudates. Moist mucous membranes. NECK: Normal range of motion, supple without lymphadenopathy, no appreciable JVD LUNGS: Lungs clear to auscultation bilaterally and equal. No wheezes rales or rhonchi. HEART: Regular rate and rhythm without murmurs ABDOMEN: Soft, nontender, normal bowel sounds. No guarding, no rebound. No masses appreciated. No CVA tenderness. EXTREMITIES: Active full range of motion, no pitting or edema. No cyanosis. 2+ pulses x4 NEUROLOGICAL: No focal neurological deficits. Moves all extremities spontaneously and on command. However patient is complaining of left-sided headache SKIN: Warm, Dry, and intact. Normal turgor, no rashes or lesions noted. Course - Re-evaluation Re-evalutation: 05/04/19 20:18 Patient has been reevaluated several times while in the emergency department patient has remained stable. Patient was given headache cocktail. I did review labs and radiologic studies with the patient. Patient was complaining of a headache however had the television on rather loudly. Patient and sister were in the room at time of reevaluation I did discuss the labs and advised the patient that there was no signs of pyelonephritis she does have a small kidney stone in the lower portion of the left kidney. Patient is given initial dose of antibiotics in the emergency department in the form of Levaquin IV subsequently given prescription for Macrobid and Maxalt for management of her headaches. Recommend that the patient follow-up with a isabel rologist for further management and possible prevention of her migraines. - Vital Signs Vital signs: Temp Pulse Resp BP Pulse Ox 98.3 F 56 L 16 117/78 91 L 05/04/19 20:03 05/04/19 20:03 05/04/19 20:03 05/04/19 20:03 05/04/19 20:03 - Laboratory Result Diagrams: 05/04/19 15:30 05/04/19 15:30 Laboratory results interpreted by me: 05/04/19 05/04/19 05/04/19 15:30 15:30 15:30 RDW 14.1 H Chloride 97 L Carbon Dioxide 31 H AST 59 H ALT 74 H Total Protein 8.4 H Urine Protein 100 H Urine Ketones TRACE H Urine Urobilinogen 2.0 H Ur Leukocyte Esterase LARGE H - Diagnostic Test Radiology reviewed: Reports reviewed Discharge - Discharge Clinical Impression: UTI (urinary tract infection) Qualifiers: Urinary tract infection type: site unspecified Hematuria presence: without hematuria Qualified Code(s): N39.0 - Urinary tract infection, site not specified Headache Qualifiers: Headache type: unspecified Headache chronicity pattern: acute headache Intractability: not intractable Qualified Code(s): R51 - Headache Condition: Stable Disposition: HOME, SELF-CARE Instructions: Nitrofurantoin ([facility]), Urinary Tract Infection ([facility]) Prescriptions: Nitrofurantoin Monohyd/M-Cryst [Macrobid 100 mg Capsule] 100 mg PO BID #20 cap Rizatriptan Benzoate [Rizatriptan] 5 mg PO BID PRN #7 tablet PRN Reason: Forms: Return to Work
== END 2019-05-04 20:03 | disposition home or self-care (01) ==
LOC: ER 11:28
DX: N39.0 Urinary tract infection, site not specified (principal); R51 Headache; R10.9 Unspecified abdominal pain; Z87.442 Personal history of urinary calculi; R19.7 Diarrhea, unspecified; R11.2 Nausea with vomiting, unspecified; Z88.0 Allergy status to penicillin; Z88.8 Allergy status to other drugs, medicaments and biological substances; F17.200 Nicotine dependence, unspecified, uncomplicated
CPT/HCPCS: 99284; 96375; 96365; 96366; 36415; 83690; 85025; 81025; 80053; 81001; 74176; J1885; J3490; J2405; J7030; J1956

== ENCOUNTER 2019-05-18 11:32 | Emergency (ER) | payer SELFPAY ==
[2019-05-18] MEDS ORDERED: NORMAL SALINE 1000 ML 1,000 ML IV ONE ×2 (11:52→13:31)
[2019-05-18] MEDS ORDERED: ONDANSETRON HCL INJ/PF 4 MG/2 ML SDV IV ONE (11:52)
[2019-05-18] MEDS ORDERED: MORPHINE SULFATE 10 MG/ML INJ IV ONE ×2 (11:52→14:35)
--- NOTE | 2019-05-18 11:55 | ER Document Report ---
ED Medical Screen (RME) - General Chief Complaint: Flank Pain Stated Complaint: RIGHT FLANK PAIN Time Seen by Provider: 05/18/19 11:47 Mode of Arrival: Wheelchair Information source: Patient Notes: 23-year-old female with history of kidney stone and stent placements in the past presents to the emergency department in [facility] for complaints of right flank pain that started last night. She reports she has been vomiting all night. Reports she has not urinated this morning because she is afraid to. Denies fever or diarrhea. Denies trauma. Patient reports she took a Vicodin last night and did not have allergic reaction to it last night. She reports she has had morphine in the past without allergic reactions. I have greeted and performed a rapid initial assessment of this patient. A comprehensive ED assessment and evaluation of the patient, analysis of test results and completion of the medical decision making process will be conducted by additional ED providers. TRAVEL OUTSIDE OF THE [place] IN LAST 30 DAYS: No - Related Data Allergies/Adverse Reactions: Penicillins Allergy (Severe, Verified 05/18/19 11:46) hydrocodone Allergy (Verified 05/18/19 11:46) grape juice Allergy (Mild, Uncoded 05/18/19 11:46) Hives mustard Allergy (Mild, Uncoded 05/18/19 11:46) Hives pickles Allergy (Mild, Uncoded 05/18/19 11:46) Hives vinegar Allergy (Uncoded 05/18/19 11:46) Past Medical History - Past Medical History Cardiac Medical History: Denies: Hx Coronary Artery Disease, Hx Hypertension Pulmonary Medical History: Denies: Hx Asthma, Hx COPD Neurological Medical History: Reports: Hx Migraine, Hx Seizures Endocrine Medical History: Denies: Hx Diabetes Mellitus Type 1, Hx Diabetes Mellitus Type 2, Hx Hyperthyroidism, Hx Hypothyroidism Renal/ Medical History: Reports: Hx Kidney Stones. Denies: Hx Peritoneal Dialysis GI Medical History: Denies: Hx Cirrhosis, Hx Crohn's Disease, Hx Hepatitis, Hx Ulcerative Colitis Musculoskeltal Medical History: Denies Hx Arthritis, Denies Hx Fibromyalgia, Denies Hx Gout Skin Medical History: Denies Hx Eczema, Denies Hx Psoriasis Psychiatric Medical History: Reports: Hx Attention Deficit Hyperactivity Disorder, Hx Bipolar Disorder, Hx Depression Infectious Medical History: Denies: Hx Hepatitis Past Surgical History: Reports: Hx Gynecologic Surgery - D&C, Other - Ureteral stent, lithotripsy - Immunizations Immunizations up to date: Yes Hx Diphtheria, Pertussis, Tetanus Vaccination: - 2008 Physical Exam - Vital signs Vitals: Temp Pulse Resp BP Pulse Ox 98.8 F 96 18 110/77 98 05/18/19 11:39 05/18/19 11:39 05/18/19 11:39 05/18/19 11:39 05/18/19 11:39 Course - Vital Signs Vital signs: Temp Pulse Resp BP Pulse Ox 98.8 F 96 18 110/77 98 05/18/19 11:39 05/18/19 11:39 05/18/19 11:39 05/18/19 11:39 05/18/19 11:39
[2019-05-18 12:34] LABS: ABSOLUTE BASOPHILS # (AUTO) 0.1 10^3/uL (0.0-0.2); ABSOLUTE EOSINOPHILS # (AUTO) 0.1 10^3/uL (0.0-0.6); ABSOLUTE LYMPHOCYTES (AUTO) 2.5 10^3/uL (0.5-4.7); ABSOLUTE MONOCYTES (AUTO) 0.7 10^3/uL (0.1-1.4); ABSOLUTE NEUT (AUTO) 5.5 10^3/uL (1.7-8.2); BASOPHILS % (AUTO) 0.7 % (0-2); EOSINOPHILS % (AUTO) 1.1 % (0-6); MEAN CORPUSCULAR HEMOGLOBIN 30.5 pg (27.0-33.4); MEAN CORPUSCULAR HGB CONC 35.1 g/dL (32.0-36.0); MEAN CORPUSCULAR VOLUME 87 fl (80-97); MONOCYTES % (AUTO) 7.8 % (3-13); PLATELET COUNT 312 10^3/uL (150-450); RED BLOOD COUNT 4.26 10^6/uL (3.72-5.28); RED CELL DISTRIBUTION WIDTH 13.9 % (11.5-14.0); SEGMENTED NEUTROPHILS % (AUTO) 62.4 % (42-78); TOTAL CELLS COUNTED % (AUTO) 100 %; WHITE BLOOD COUNT 8.9 10^3/uL (4.0-10.5)
[2019-05-18 12:58] LABS: ALBUMIN 4.6 g/dL (3.5-5.0); ALKALINE PHOSPHATASE 69 U/L (38-126); ANION GAP 7 (5-19); ASPARTATE AMINO TRANSFERASE 42 U/L (14-36); BILIRUBIN,TOTAL 0.5 mg/dL (0.2-1.3); BLOOD UREA NITROGEN 9 mg/dL (7-20); CALCIUM 9.6 mg/dL (8.4-10.2); CARBON DIOXIDE 26 mmol/L (22-30); CHLORIDE 106 mmol/L (98-107); GLUCOSE 73 mg/dL (75-110); POTASSIUM 4.2 mmol/L (3.6-5.0); TOTAL PROTEIN 7.8 g/dL (6.3-8.2)
[2019-05-18] MEDS ORDERED: KETOROLAC TROMETHAMINE INJ/PF 30 MG/1 ML SDV IV ONE (13:16)
--- NOTE | 2019-05-18 13:40 | ER Document Report ---
ED General - General Chief Complaint: Flank Pain Stated Complaint: RIGHT FLANK PAIN Time Seen by Provider: 05/18/19 11:47 Mode of Arrival: Wheelchair TRAVEL OUTSIDE OF THE [place] IN LAST 30 DAYS: No - HPI Notes: Patient is a 23-year-old female with a history of kidney stones and stent placement in the past presents emergency department complaining of right flank pain that started last night and will occasionally radiate down into her abdomen. She does have associated nausea and vomiting. She has had decreased p.o. intake. Patient states that she has been having trouble urinating as well. She is having normal bowel movements. Patient did take a Vicodin tablet last night because of the pain not realizing what the medication was and states that she is actually allergic to it. She has not had any swelling or rash, however. Denies any headache, fever, neck pain, URI, sore throat, chest pain, palpitations, syncope, cough, shortness of breath, wheeze, dyspnea, diarrhea, numbness/tingling, saddle anesthesia, muscle paralysis/weakness, or rash. - Related Data Allergies/Adverse Reactions: Penicillins Allergy (Severe, Verified 05/18/19 11:46) hydrocodone Allergy (Verified 05/18/19 11:46) grape juice Allergy (Mild, Uncoded 05/18/19 11:46) Hives mustard Allergy (Mild, Uncoded 05/18/19 11:46) Hives pickles Allergy (Mild, Uncoded 05/18/19 11:46) Hives vinegar Allergy (Uncoded 05/18/19 11:46) Past Medical History - General Information source: Patient - Social History Smoking Status: Current Every Day Smoker Family History: denies: CAD, CVA, DM, Hypertension, Malignancy Patient has suicidal ideation: No Patient has homicidal ideation: No - Past Medical History Cardiac Medical History: Denies: Hx Coronary Artery Disease, Hx Hypertension Pulmonary Medical History: Denies: Hx Asthma, Hx COPD Neurological Medical History: Reports: Hx Migraine, Hx Seizures Endocrine Medical History: Denies: Hx Diabetes Mellitus Type 1, Hx Diabetes Mellitus Type 2, Hx Hyperthyroidism, Hx Hypothyroidism Renal/ Medical History: Reports: Hx Kidney Stones. Denies: Hx Peritoneal Dialysis GI Medical History: Denies: Hx Cirrhosis, Hx Crohn's Disease, Hx Hepatitis, Hx Ulcerative Colitis Musculoskeletal Medical History: Denies Hx Arthritis, Denies Hx Fibromyalgia, Denies Hx Gout Skin Medical History: Denies Hx Eczema, Denies Hx Psoriasis Psychiatric Medical History: Reports: Hx Attention Deficit Hyperactivity Disorder, Hx Bipolar Disorder, Hx Depression Infectious Medical History: Denies: Hx Hepatitis Past Surgical History: Reports: Hx Gynecologic Surgery - D&C, Other - Ureteral stent, lithotripsy - Immunizations Immunizations up to date: Yes Hx Diphtheria, Pertussis, Tetanus Vaccination: - 2008 Review of Systems - Review of Systems -: Yes All other systems reviewed and negative Physical Exam - Vital signs Vitals: Temp Pulse Resp BP Pulse Ox 98.8 F 96 18 110/77 98 05/18/19 11:39 05/18/19 11:39 05/18/19 11:39 05/18/19 11:39 05/18/19 11:39 - Notes Notes: PHYSICAL EXAMINATION: GENERAL: Well-appearing, well-nourished and in no acute distress. HEAD: Atraumatic, normocephalic. EYES: Pupils equal round and reactive to light, extraocular movements intact, sclera anicteric, conjunctiva are normal. ENT: Nares patent and without discharge. oropharynx clear without exudates. No tonsilar hypertrophy or erythema. Moist mucous membranes. NECK: Normal range of motion, supple without lymphadenopathy LUNGS: Breath sounds clear to auscultation bilaterally and equal. No wheezes rales or rhonchi. HEART: Regular rate and rhythm without murmurs, rubs, gallops. ABDOMEN: Soft, nondistended abdomen. No guarding, no rebound. Normal bowel sounds present. Rt CVA tenderness noted. Hardin neg. No tenderness at [place]. Musculoskeletal: FROM to passive/active. Strength 5+/5. Extremities: No cyanosis, clubbing, or edema b/l. Peripheral pulses 2+. Capillary refill less than 3 seconds. NEUROLOGICAL: Normal speech, normal gait. PSYCH: Normal mood, normal affect. SKIN: Warm, Dry, normal turgor, no rashes or lesions noted. Course - Re-evaluation Re-evalutation: 05/18/19 16:06 Patient is an afebrile, well-hydrated, 23-year-old female who presents to the ED with a 5mm ureteral stone to the rt side without hydroureter/nephrosis. Vitals are acceptable without any significant tachycardia, tachypnea, or hypoxia. PE is otherwise unremarkable. CBC, CMP unremarkable for acute pathology. See UA results, I suspect contaminant, but will cover tentatively with Keflex and send UC. Patient was given Zofran, morphine, and toradol which significantly helped the pain. No other labs or imaging warranted at this time based on H&P. Patient is tolerating p.o. without difficulties and is nontoxic-appearing. Low suspicion/risk for urosepsis, acute appendicitis, bowel obstruction, acute chol ecystitis, perforated diverticulitis, incarcerated hernia, pancreatitis, perforated ulcer, peritonitis, sepsis, testicular torsion, or other systemic emergent condition at this time. Patient is aware that this condition can change from initial presentation and she needs to monitor symptoms closely and seek medical attention if any acute changes. I will send her home with a prescription for zofran, flomax, and morphine IR. Conservative measures otherwise for symptoms. Recheck with PCM in 2-3 days. Schedule consult with a urologist. Return to the ED with any worsening/concerning symptoms otherwise as reviewed in discharge. Patient is in agreement. - Vital Signs Vital signs: Temp Pulse Resp BP Pulse Ox 98.8 F 96 18 110/77 98 05/18/19 11:39 05/18/19 11:39 05/18/19 11:39 05/18/19 11:39 05/18/19 11:39 - Laboratory Result Diagrams: 05/18/19 12:20 05/18/19 12:20 Laboratory results interpreted by me: 05/18/19 05/18/19 12:20 15:20 Glucose 73 L AST 42 H ALT 55 H Urine Protein 30 H Urine Urobilinogen 4.0 H Ur Leukocyte Esterase LARGE H Discharge - Discharge Clinical Impression: Right ureteral stone Condition: Stable Disposition: HOME, SELF-CARE Additional Instructions: Push fluids (i.e. water, cranberry juice) Proper hygenic technique Keep the skin clean Tylenol/ibuprofen as needed Take medications as directed F/u with your PCM in 3-5 days for a recheck Schedule appointment with urology for further evaluation and management Return to the ED with any worsening symptoms and/or development of fever, headache, chest pain, palpitations, syncope, shortness of breath, trouble breathing, abdominal pain, n/v/d, blood in stool/urine, loss of control of bowel/bladder, urinary retention, or other worsening symptoms that are concerning to you. Prescriptions: Tamsulosin HCl [Flomax] 0.4 mg PO DAILY #10 cap.er.24h Morphine Sulfate [Morphine Ir 15 Mg Tablet] 15 mg PO TID #12 tablet Ibuprofen [Motrin 800 mg Tablet] 800 mg PO Q8H PRN #15 tab PRN Reason: Ondansetron [Zofran Odt 4 mg Tablet] 1 - 2 tab PO Q4H PRN #15 tab.rapdis PRN Reason: For Nausea/Vomiting Forms: Return to Work Referrals: [facility] [Provider Group] - Follow up in 3-5 days
--- NOTE | 2019-05-18 14:27 | RADIOLOGY REPORT (SQ) ---
EXAM DESCRIPTION: CT ABD/PELVIS NO ORAL OR IV COMPLETED DATE/TIME: 05/18/2019 2:07 pm REASON FOR STUDY: right flank, hx kidney stones with stents COMPARISON: 05/04/2019 TECHNIQUE: CT scan of the abdomen and pelvis performed without intravenous or oral contrast. Images reviewed with lung, soft tissue, and bone windows. Reconstructed coronal and sagittal MPR images revi ewed. All images stored on PACS. All CT scanners at this facility use dose modulation, iterative reconstruction, and/or weight based d osing when appropriate to reduce radiation dose to as low as reasonably achievable (ALARA). [facility]: Dose Right [facility]: CareDose [facility]: Dose Right [facility]: Teradose 4D [facility]: Smart Clone RADIATION DOSE: CT Rad equipment meets quality standard of care and radiation dose reduction techniq ues were employed. CTDIvol: 4.8 mGy. DLP: 246 mGy-cm.mGy. LIMITATIONS: None. FINDINGS: LOWER CHEST: No significant findings. No nodules or infiltrates. NON-CONTRASTED LIVER, SPLEEN, ADRENALS: Evaluation limited by lack of IV contrast. No identified sign ificant masses. PANCREAS: No masses. No peripancreatic inflammatory changes. GALLBLADDER: No identified stones by CT criteria. No inflammatory changes to suggest cholecystitis. RIGHT KIDNEY AND URETER: No suspicious masses. Assessment limited by lack of IV contrast. There is nephrocalcinosis. There is a new proximal right ureteral stone when compared to most recent study. This measures 1.7 cm in greatest diameter it measures 5.5 mm in cranial caudal dimensions. No hydro nephrosis on the current study. LEFT KIDNEY AND URETER: No suspicious masses. Assessment limited by lack of IV contrast. Small stab le nonobstructing stone in the lower pole the left kidney. There is nephrocalcinosis. No hydroneph rosis or hydroureter. AORTA AND RETROPERITONEUM: No aneurysm. No retroperitoneal masses or adenopathy. BOWEL AND PERITONEAL CAVITY: No obvious masses or inflammatory changes. No free fluid. APPENDIX: Normal. PELVIS, BLADDER, AND ABDOMINAL WALL:No abnormal masses. No free fluid. Bladder normal. BONES: No significant findings. OTHER: No other significant finding. IMPRESSION: Proximal right ureteral stone as described. No hydronephrosis. Nonobstructing stone in the lower pole the left kidney. Bilateral nephrocalcinosis. COMMENT: Quality ID # [id number]: Final reports with documentation of one or more dose reduction techniques (e.g., Automated exposure control, adjustment of the mA and/or kV according to patient size, use of iterative reconstruction technique) TECHNICAL DOCUMENTATION: JOB ID: [id number] 2010 [employer]- All Rights Reserved Reading location - IP/workstation name: [email or web address]-
[2019-05-18 15:50] LABS: APPEARANCE,URINE CLOUDY; BILIRUBIN,URINE NEGATIVE (NEGATIVE); COLOR,URINE AMBER; GLUCOSE, URINE NEGATIVE (NEGATIVE); KETONES,URINE NEGATIVE (NEGATIVE); LEUKOCYTE ESTERASE,URINE LARGE (NEGATIVE); NITRITE,URINE NEGATIVE (NEGATIVE); PROTEIN,URINE 30 mg/dL (NEGATIVE); URINE SPECIFIC GRAVITY 1.025
[2019-05-18 15:59] LABS: ADD MANUAL MICROSCOPIC YES; AMORPHOUS SEDIMENT,UR TRACE
[2019-05-18 16:28] VITALS: BP 112/66
== END 2019-05-18 16:25 | disposition home or self-care (01) ==
LOC: ER 11:32
DX: N20.1 Calculus of ureter (principal); R10.9 Unspecified abdominal pain; F17.200 Nicotine dependence, unspecified, uncomplicated; Z87.442 Personal history of urinary calculi; Z88.0 Allergy status to penicillin
CPT/HCPCS: 96376; 99284; 96361; 96374; 96375; 36415; 87086; 84703; 85025; 80053; 81001; 74176; J1885; J2270; J2405; J7030

== ENCOUNTER 2019-07-11 18:29 | Emergency (ER) | payer SELFPAY ==
[2019-07-11] MEDS ORDERED: MORPHINE SULFATE 10 MG/ML INJ IV ONE ×2 (19:03→21:05)
[2019-07-11] MEDS ORDERED: ONDANSETRON HCL INJ/PF 4 MG/2 ML SDV IV ONE (19:03)
[2019-07-11] MEDS ORDERED: KETOROLAC TROMETHAMINE INJ/PF 30 MG/1 ML SDV IV ONE (19:03)
[2019-07-11] MEDS ORDERED: NORMAL SALINE 1000 ML 1,000 ML IV ONE ×2 (19:04→21:51)
--- NOTE | 2019-07-11 19:12 | ER Document Report ---
ED General - General Mode of Arrival: Ambulatory Information source: Patient TRAVEL OUTSIDE OF THE [place] IN LAST 30 DAYS: No <LAURA DRAPER - Last Filed: 07/11/19 19:11> <AURY OAKES - Last Filed: 07/11/19 22:45> - General Chief Complaint: Flank Pain Stated Complaint: URINARY PROBLEM Time Seen by Provider: 07/11/19 18:39 - HPI Notes: Patient presents with right flank pain. She states this started suddenly today. It is been constant and severe. It is a sharp sensation. She states it feels similar to the previous kidney stones that she has had. She is had some nausea and vomiting as well. Nothing makes the pain better or worse. It does radiate around her abdomen. No fevers. (LAURA DRAPER) - Related Data Allergies/Adverse Reactions: Penicillins Allergy (Severe, Verified 05/18/19 11:46) hydrocodone Allergy (Verified 05/18/19 11:46) grape juice Allergy (Mild, Uncoded 05/18/19 11:46) Hives mustard Allergy (Mild, Uncoded 05/18/19 11:46) Hives pickles Allergy (Mild, Uncoded 05/18/19 11:46) Hives vinegar Allergy (Uncoded 05/18/19 11:46) Past Medical History - General Information source: Patient - Social History Smoking Status: Former Smoker Frequency of alcohol use: None Drug Abuse: Marijuana Family History: denies: CAD, CVA, DM, Hypertension, Malignancy Patient has homicidal ideation: No - Past Medical History Cardiac Medical History: Denies: Hx Coronary Artery Disease, Hx Hypertension Pulmonary Medical History: Denies: Hx Asthma, Hx COPD Neurological Medical History: Reports: Hx Migraine, Hx Seizures Endocrine Medical History: Denies: Hx Diabetes Mellitus Type 1, Hx Diabetes Mellitus Type 2, Hx Hyperthyroidism, Hx Hypothyroidism Renal/ Medical History: Reports: Hx Kidney Stones. Denies: Hx Peritoneal Dialysis GI Medical History: Denies: Hx Cirrhosis, Hx Crohn's Disease, Hx Hepatitis, Hx Ulcerative Colitis Musculoskeletal Medical History: Denies Hx Arthritis, Denies Hx Fibromyalgia, Denies Hx Gout Skin Medical History: Denies Hx Eczema, Denies Hx Psoriasis Psychiatric Medical History: Reports: Hx Attention Deficit Hyperactivity Disorder, Hx Bipolar Disorder, Hx Depression Infectious Medical History: Denies: Hx Hepatitis Past Surgical History: Reports: Hx Gynecologic Surgery - D&C, Other - Ureteral stent, lithotripsy - Immunizations Immunizations up to date: Yes Hx Diphtheria, Pertussis, Tetanus Vaccination: - 2008 <LAURA DRAPER - Last Filed: 07/11/19 19:11> Review of Systems - Review of Systems Constitutional: denies: Chills, Fever Cardiovascular: denies: Chest pain, Palpitations Respiratory: denies: Cough, Short of breath -: Yes All other systems reviewed and negative <LAURA DRAPER - Last Filed: 07/11/19 19:11> Physical Exam - Vital signs Interpretation: Normal - General General appearance: Appears well, Alert In distress: None - HEENT Head: Normocephalic, Atraumatic Eyes: Normal Pupils: PERRL - Respiratory Respiratory status: No respiratory distress Chest status: Nontender Breath sounds: Normal Chest palpation: Normal - Cardiovascular Rhythm: Regular Heart sounds: Normal auscultation Murmur: No - Abdominal Inspection: Normal Distension: No distension Bowel sounds: Normal Tenderness: Nontender Organomegaly: No organomegaly - Back Back: Normal, Nontender - Extremities General upper extremity: Normal inspection, Nontender, Normal color, Normal ROM, Normal temperature General lower extremity: Normal inspection, Nontender, Normal color, Normal ROM, Normal temperature, Normal weight bearing. No: [place]'s sign - Neurological Neuro grossly intact: Yes Cognition: Normal Orientation: AAOx4 [place] Coma Scale Eye Opening: Spontaneous [place] Coma Scale Verbal: Oriented Chris Coma Scale Motor: Obeys Commands [place] Coma Scale Total: 15 Speech: Normal Motor strength normal: LUE, RUE, LLE, RLE Sensory: Normal - Psychological Associated symptoms: Normal affect, Normal mood - Skin Skin Temperature: Warm Skin Moisture: Dry Skin Color: Normal <LAURA DRAPER - Last Filed: 07/11/19 19:11> - Vital signs Vitals: Temp 98.5 F 07/11/19 18:47 - General Notes: Appears uncomfortable (LAURA DRAPER) Course - Laboratory Result Diagrams: 07/11/19 19:00 07/11/19 19:00 - Diagnostic Test Radiology reviewed: Image reviewed, Reports reviewed - CT abdomen pelvis: 4 mm left renal calculus nonobstructing, small stone noted on prior CT no longer present. There is no right hydroureter or hydronephrosis. <AURY OAKES - Last Filed: 07/11/19 22:45> - Re-evaluation Re-evalutation: 07/11/19 22:41 I assumed care of this patient from Dr. Draper Apparently patient is stating her ride is here and she has to go home, she is s igning out AGAINST MEDICAL ADVICE. She has not received antibiotics which were ordered for urinary tract infection. CT scan reveals a small obstructing right- sided stone is no longer present. Patient states she will come back tomorrow. 07/11/19 22:43 (AURY OAKES) - Vital Signs Vital signs: Temp Pulse Resp BP Pulse Ox 97.8 F 55 L 20 100/73 100 07/11/19 21:59 07/11/19 21:59 07/11/19 21:59 07/11/19 21:59 07/11/19 21:59 - Laboratory Laboratory results interpreted by me: 07/11/19 07/11/19 19:00 20:45 AST 96 H ALT 183 H Urine Protein 30 H Urine Urobilinogen 4.0 H Leukocyte Esterase Rfl MODERATE H Discharge <LAURA DRAPER - Last Filed: 07/11/19 19:11> <AURY OAKES - Last Filed: 07/11/19 22:45> - Discharge Clinical Impression: UTI (urinary tract infection) Qualifiers: Urinary tract infection type: acute cystitis Hematuria presence: without hematuria Qualified Code(s): N30.00 - Acute cystitis without hematuria Condition: Good Disposition: AGAINST MEDICAL ADVICE
[2019-07-11 19:18] LABS: ABSOLUTE EOSINOPHILS # (AUTO) 0.1 10^3/uL (0.0-0.6); ABSOLUTE MONOCYTES (AUTO) 0.5 10^3/uL (0.1-1.4); RED CELL DISTRIBUTION WIDTH 13.9 % (11.5-14.0); TOTAL CELLS COUNTED % (AUTO) 100 %; WHITE BLOOD COUNT 7.9 10^3/uL (4.0-10.5)
[2019-07-11 19:33] LABS: ABSOLUTE BASOPHILS # (AUTO) 0.1 10^3/uL (0.0-0.2); ABSOLUTE LYMPHOCYTES (AUTO) 2.6 10^3/uL (0.5-4.7); ABSOLUTE NEUT (AUTO) 4.7 10^3/uL (1.7-8.2); BASOPHILS % (AUTO) 0.6 % (0-2); EOSINOPHILS % (AUTO) 1.1 % (0-6); HEMATOCRIT 40.7 % (36.0-47.0); HEMOGLOBIN 14.2 g/dL (12.0-15.5); LYMPHOCYTES % (AUTO) 32.5 % (13-45); MEAN CORPUSCULAR HGB CONC 34.8 g/dL (32.0-36.0); MEAN CORPUSCULAR VOLUME 89 fl (80-97); MONOCYTES % (AUTO) 6.6 % (3-13); PLATELET COUNT 296 10^3/uL (150-450); RED BLOOD COUNT 4.57 10^6/uL (3.72-5.28); SEGMENTED NEUTROPHILS % (AUTO) 59.2 % (42-78)
[2019-07-11 19:38] LABS: ALBUMIN 4.5 g/dL (3.5-5.0); ALKALINE PHOSPHATASE 74 U/L (38-126); ASPARTATE AMINO TRANSFERASE 96 U/L (14-36); BILIRUBIN,TOTAL 0.3 mg/dL (0.2-1.3); BLOOD UREA NITROGEN 7 mg/dL (7-20); CALCIUM 9.5 mg/dL (8.4-10.2); GLUCOSE 83 mg/dL (75-110); POTASSIUM 4.4 mmol/L (3.6-5.0); TOTAL PROTEIN 7.9 g/dL (6.3-8.2)
[2019-07-11 19:46] LABS: CHLORIDE 104 mmol/L (98-107)
[2019-07-11 19:47] LABS: ANION GAP 5 (5-19); CARBON DIOXIDE 29 mmol/L (22-30)
[2019-07-11 21:01] LABS: AMORPHOUS SEDIMENT,URINE TRACE /HPF; APPEARANCE,URINE CLOUDY; BILIRUBIN,URINE NEGATIVE (NEGATIVE); GLUCOSE, URINE NEGATIVE (NEGATIVE); KETONES,URINE NEGATIVE (NEGATIVE); PROTEIN,URINE 30 mg/dL (NEGATIVE)
[2019-07-11 21:02] LABS: COLOR,URINE DARK YELLOW
[2019-07-11] MEDS ORDERED: LEVOFLOXACIN 750 MG/D5W RTU 750 MG/150 ML RTUPB IV SCH (21:30)
[2019-07-11 22:00] VITALS: BP 100/73
--- NOTE | 2019-07-11 22:19 | RADIOLOGY REPORT (SQ) ---
CLINICAL INDICATION: right flank pain/hx stones/stents. . TECHNIQUE: Noncontrast spiral axial CT imaging was obtained of the abdomen and pelvis with multiplanar reconstructions. This exam was performed according to our departmental dose-optimization program, which includes automated exposure control, adjustment of the mA and/or kV according to patient size and/or use of iterative reconstruction techniques. COMPARISON: May 18, 2019. CORRELATION: None. FINDINGS: Abdomen: The lung bases are grossly clear. The heart is of normal size. No evidence of pleural or pericardial fluid. The liver is of normal size contour and attenuation. The gallbladder is nondistended without inflammatory change. The pancreas is of grossly normal contour on this noncontrast examination. The spleen is unremarkable. The adrenals are unremarkable. The kidneys demonstrate nonobstructing calculi, the largest on the left measuring 4 mm. The tiny calculus present previously within the proximal right ureter at the UPJ is not identified on current.. There is no evidence of free air. No free fluid. No bulky adenopathy. Abdominal aorta is nonaneurysmal. Pelvis: The bowel is nonobstructed. The bowel is unopacified with oral contrast. Pelvic contents are unremarkable. The appendix is normal. Visualized bones are unremarkable. IMPRESSION: Imaging is degraded by patient motion, with resultant artifact. The best possible images were obtained. Nonobstructing calculi of the left kidney are again identified. The tiny calculus within the proximal ureter on prior examination measuring no more than 2 mm is not appreciated on current examination. No right-sided hydronephrosis or hydroureter. Admittedly, detail is degraded by patient motion..
== END 2019-07-11 22:32 | disposition left against medical advice (07) ==
LOC: ER 18:29
DX: N30.00 Acute cystitis without hematuria (principal); R10.9 Unspecified abdominal pain; Z88.0 Allergy status to penicillin; Z87.442 Personal history of urinary calculi
CPT/HCPCS: 96376; 99284; 96361; 96374; 96375; 36415; 85025; 81025; 80053; 81001; 74176; J1885; J2270; J2405; J7030